=== PATIENT | female | born 1995 | race Caucasian/White ===

== ENCOUNTER 2024-04-29 12:18 | Observation (INO) | payer OTHER, SELFPAY ==
[2024-04-29] VITALS (16 sets, daily range): BP systolic 101–126; BP diastolic 59–98; PULSE 97–137; RESP 9–22; TEMP 36.7–37.1; O2SAT 98–100; BMI 26.5
--- NOTE | ~2024-04-29 | US_ITS ---
EXAMINATION: US pelvic complete DATE: 04/29/2024 16:51 INDICATION: RLQ pain, R/O torsion TECHNIQUE: Multiple transabdominal and endovaginal sonographic images of the pelvis were obtained. COMPARISON: None. FINDINGS: Uterus: 7.5 x 3.6 x 5.3 cm. Endometrial complex measures 4 mm. Right Ovary: 2.9 x 2.4 x 2.9 cm. Vascular flow is present. Left Ovary: 3.2 x 3.0 x 4.6 cm. Vascular flow is present. 2.8 cm circumscribed ovarian lesion with mi nimal somewhat irregular/lacy appearing internal echogenicity, no internal flow (confirmed with sonog rapher, provided image demonstrated artifactual flow), likely resolving hemorrhagic cyst. There is no free fluid in the pelvis. IMPRESSION: Normal pelvic sonogram findings. Reviewed, dictated and finalized at location K. SUPPORT TECHNICIAN
--- NOTE | ~2024-04-29 | XR_ITS ---
EXAMINATION: XR chest 1V portable Exam Date/Time: 04/29/2024 14:40 CREASING MACHINE OPERATOR HISTORY: R sided abdominal pain Comparison: None. RESULT: Lines, tubes, and devices: None. Lungs and pleura: Clear. Cardiomediastinal silhouette: Unremarkable. Other: No acute osseous or upper abdominal finding. IMPRESSION: No acute cardiopulmonary process. Reviewed, dictated and finalized at location K. SING MACHINE OPERATOR
--- NOTE | ~2024-04-29 | CT_ITS ---
EXAMINATION: CT abdomen pelvis w con DATE: 04/29/2024 15:43 INDICATION: RLQ pain TECHNIQUE: Computed tomography (CT) of the abdomen and pelvis was performed with 100 mL Omnipaque-350 intravenous contrast. Automated exposure control and iterative reconstruction technique were employe d. The dose-length product was 251.60 mGy-cm. COMPARISON: None. FINDINGS: Lower thorax: Unremarkable Liver: Normal. Biliary/Gallbladder: Gallbladder is absent. Prominence of the intra and extrahepatic bile ducts, like ly secondary to cholecystectomy. Pancreas: No mass or duct dilation. Spleen: Normal. Adrenals:No mass. Kidneys: No suspicious mass, obstructing stone, or hydronephrosis. Punctate nonobstructing bilateral renal calcifications. GI tract: Mild distal esophageal and gastric wall edema. No small or large bowel dilation. Normal lily endix. Mesentery/Peritoneum: No ascites, mass, or free air. Retroperitoneum: No mass. Pelvis: Normal urinary bladder. Normal uterus. Normal bilateral ovaries. Simple appearing 2.7 cm left ovarian cyst. Soft Tissues: Soft tissues and body wall unremarkable. Bones: No acute osseous finding. IMPRESSION: Mild esophagitis/gastritis. Otherwise, no acute abdominopelvic process detected. Reviewed, dictated and finalized at location K. IC AID ELIGIBILITY ASSISTANT
--- NOTE | ~2024-04-29 | US_ITS ---
EXAMINATION: US abdomen complete DATE: 04/30/2024 12:05 INDICATION: Elevated liver function tests TECHNIQUE: Multiple grayscale and Doppler ultrasound images of the abdomen were obtained. COMPARISON: CT dated 04/29/2024 FINDINGS: The pancreatic head and body are normal in appearance. The pancreatic tail is not visualized. The vi sualized proximal to mid aorta and inferior vena cava are normal. Liver has normal echogenicity and c ontour, with a smooth surface. No liver lesion identified. No intrahepatic biliary duct dilation susp ected. Portal venous flow was seen in the hepatopetal, normal direction and has normal Doppler wavefo rm. Status post cholecystectomy. The common bile duct measures 4 mm in maximal diameter which is norm al. There is normal renal contour and echogenicity bilaterally. The right kidney measures 10.9 x 4.3 x 4.4 cm and the left 11.2 x 4.2 x 3.9 cm. There are no focal renal lesions identified. There is no hydronephrosis. 8 mm anechoic splenic cyst. Spleen is otherwise normal measuring 11.2 cm in maximal length. IMPRESSION: 1. There is post cholecystectomy. Otherwise unremarkable abdominal ultrasound. Reviewed, dictated and finalized at location B. ORATE MEETING PLANNER
--- NOTE | 2024-04-29 14:40 | ECG_ITS ---
Test Date: 2024-04-29 14:50:22 Measurements Intervals [place] Rate: 103 P: 49 CT: 143 QRS: 46 QRSD: 78 T: 28 QT: 294 QTc: 386 Interpretive Statements SINUS TACHYCARDIA CONSIDER RIGHT VENTRICULAR CONDUCTION DELAY BASELINE ARTIFACT- I, II, III, AVR, AVL, AVF, V1-V2 BORDERLINE ECG No previous ECG available for comparison Electronically Signed On 04-29-2024 14:53:11 MEDICATION TECH by Lauri Poe D.O.
[2024-04-29 14:46] LABS: Basophils Percent Auto 0.2 % (0.2-1.2); Eosinophils Percent Auto 0.1 % (0-4.4); Hemoglobin 14.1 g/dL (12.0-15.0); Immature Granulocyte Absolute 0.04 K/mm3 (0.00-0.031); Immature Granulocyte Percent A 0.3 % (0-0.5); Lymphocytes Absolute Auto 0.62 K/mm3 (0.9-3.2); Lymphocytes Percent Auto 4.9 % (18.3-44.2); Mean Corpuscular HGB Conc 33.6 g/dl (32-36); Mean Corpuscular Hemoglobin 27.8 pg (26-34); Mean Corpuscular Volume 82.8 fl (80-100); Mean Platelet Volume 11.7 fl (7.4-10.4); Monocytes Absolute Auto 0.6 K/mm3 (0.1-0.6); Monocytes Percent Auto 4.7 % (2.6-8.5); Neutrophils Absolute Auto 11.3 K/mm3 (1.3-6.7); Neutrophils Percent Auto 89.8 % (45.5-73.1); Platelet Count Result 233 k/mm3 (150-375); Red Blood Count 5.07 M/mm3 (4.2-5.4); White Blood Count 12.6 K/mm3 (4.5-10.0)
[2024-04-29] MEDS: SODIUM CHLORIDE 0.9% IV 2,000 ML 999 ML IV CONT (14:48)
[2024-04-29] MEDS: ONDANSETRON INJ 4 MG/2 ML VIAL IV PUSH ×3 (14:48→22:38)
[2024-04-29] MEDS: HYDROmorphone HCL INJ (*CRX) 1 MG/ML SYR 0.5 MG IV PUSH ×3 (14:49→22:37)
[2024-04-29 14:58] LABS: Glucose Point of Care 100 mg/dl (65-105)
[2024-04-29 15:03] LABS: Add Urine Microscopic? YES; Appearance Urine Clear (Clear); Bacteria Urine Rare /hpf; Bilirubin Urine Negative (Negative); Blood Urine 3+ (Negative); Color Urine Yellow (Yellow); Glucose Urine UA Negative (Negative); Ketones Urine Negative (Negative); Leukocyte Esterase Ur Negative LEU/UL (Negative); Nitrate Urine Negative (Negative); Non Pathogenic Casts 0-2; Protein Urine Negative (Negative); Specific Grav Ur 1.021 (1.001-1.035); Squamous Epithelial Cell Urine Few /hpf (Few); Urobilinogen Urine 0.2 mg/dL (<2.0); WBC Urine 0-5 /hpf (0-3); pH Urine 5.5 (5.0-9.0)
[2024-04-29 15:06] LABS: Alanine Aminotransferase 22 U/L (6-35); Albumin Level 4.7 g/dL (3.5-5.1); Alkaline Phosphatase 66 U/L (38-126); Anion Gap 12 mmol/L (4-12); Aspartate Amino Transferase 29 U/L (14-36); Bilirubin,Total 1.4 mg/dL (0.2-1.3); Blood Urea Nitrogen 12 mg/dL (7-17); Calcium 9.3 mg/dL (8.4-10.2); Carbon Dioxide 21 mmol/L (22-30); Chloride 104 mmol/L (98-107); Estimated CRCL calculation 98 ml/min; Estimated Glomerular Filt Rate > 60; Glucose 100 mg/dL (65-110); Lipase 62 U/L (23-300); Potassium 4.1 mmol/L (3.4-5.0); Sodium 137 mmol/L (137-145)
[2024-04-29] MEDS: KETOROLAC 15 MG/ML VIAL (*BKC) IV PUSH (17:31)
[2024-04-29] MEDS: DICYCLOMINE HCL INJ 20 MG/2 ML VIAL IM (17:31)
--- NOTE | 2024-04-29 18:23 | ED_ITS ---
HPI - General Adult General Chief complaint: Abdominal Pain Stated complaint: abd pain Time Seen by Provider: 04/29/24 14:27 History of Present Illness HPI narrative: This is a 28-year-old female presenting ED with chief abdominal pain. The pain started at 5:00 a.m. this morning. It was initially located around her bellybutton and then migrated to the right lower quadrant. She had a fever of 100.8. She has also had nausea vomiting diarrhea. She took Motrin Tylenol with minimal relief. She notes she has had vaginal bleeding for the last month but has a Nexplanon and is not unusual for to have breakthrough bleeding. She is only sexually active with her and does not have any vaginal discharge or irritation and has no concerns for STDs. Hx of cholecystectomy. Related Data Allergies Allergy/AdvReac Type Severity Reaction Status Date / Time No Known Allergies Allergy Verified 01/11/24 13:48 [facility] Surgical History Surgical History H/O section 2018, 2021 History of cholecystectomy 2017 Family History Family History Father Alcoholism in family member Grandparent Heart disease Social History Social History Smoking status: Never smoker Alcohol intake: never Substance use: never Do You Feel Safe in your Home?: Yes Lack of Transportation: No Lack of Food: Never True Current Housing: I Have Housing Concerned About Future Housing: No Difficulty Paying Gas/Electric Bills: No Difficulty Paying for Meds: No Currently Unemployed: No Education: Bachelor's Degree Difficulty w/ Childcare or Family Care: No Living arrangements: with family Occupation/Education: occupation Additional occupation/education comments: RN, 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 Head: atraumatic. EYES: EOMI, NOSE: Atraumatic NECK: Trachea midline RESPIRATORY: No increased rate of breathing CARDIOVASCULAR: RRR, ABDOMINAL: Tenderness in the right lower quadrant with voluntary guarding, no rebound, no CVA tenderness MUSCULOSKELETAl: No obvious deformities NEURO: Alert. Moving 4/4 extremities SKIN:: Warm, dry. Normal color PSYCHIATRIC: Normal affect Course Vital Signs Vital signs: Vital Signs Temperature 98.7 F 04/29/24 12:21 Pulse Rate 137 H 04/29/24 12:21 Respiratory Rate 20 04/29/24 12:21 Blood Pressure 126/86 04/29/24 12:21 Pulse Oximetry 100 04/29/24 12:21 Temperature 98.7 F 04/29/24 12:21 Pulse Rate 97 04/29/24 18:00 Respiratory Rate 16 04/29/24 18:00 Blood Pressure 106/70 04/29/24 18:00 Pulse Oximetry 99 04/29/24 18:00 Medical Decision Making MDM Narrative Medical decision making narrative: -Course: This is a 28-year-old female presenting with right lower quadrant pain, fevers nausea vomiting diarrhea. CT did not show evidence of appendiciti s. Transvaginal ultrasound did not show evidence of torsion or cyst. WBC 12.6. After fluid resuscitation and pain medication the patient is still exquisitely tender in the right lower quadrant and tachycardic. Her history and physical are concerning for appendicitis despite the negative CT. I am uncomfortable sending the patient home given her continued tenderness and abnormal v/s. Case was discussed with Dr. Montalvo. Patient will be placed on Zosyn and put in observation for repeat abdominal exams and surgical eval. -DDX includes but is not limited to: Appendicitis, colitis, enterocolitis, ovarian cyst, or torsion, viral syndrome -Independent interpretation of studies: White count 12.6 Metabolic panel unremarkable Urine with 3 blood and 6-10 rbc's per high-power field. Patient is having breakthrough bleeding from her Nexplanon. Imaging reviewed -Discussion of Management/Consultants: Michelle Valladares -Interventions: Dilaudid .5 mg x2, , Toradol, 2 L normal saline, Zofran, d icyclomine -Shared decision making / Disposition: Observation Vital Signs Vital Signs: Vital Signs Temperature 98.7 F 04/29/24 12:21 Pulse Rate 137 H 04/29/24 12:21 Respiratory Rate 20 04/29/24 12:21 Blood Pressure 126/86 04/29/24 12:21 Pulse Oximetry 100 04/29/24 12:21 Temperature 98.7 F 04/29/24 12:21 Pulse Rate 97 11/17/24 18:00 Respiratory Rate 16 04/29/24 18:00 Blood Pressure 106/70 04/29/24 18:00 Pulse Oximetry 99 04/29/24 18:00 Lab Data 04/29/24 14:39 04/29/24 14:39 Labs: Lab Results 04/29/24 04/29/24 04/29/24 Range/Units 14:39 14:46 14:51 WBC 12.6 H (4.5-10.0) K/mm3 RBC 5.07 (4.2-5.4) M/mm3 Hgb 14.1 (12.0-15.0) g/dL Hct 42.0 (37.0-47.0) % MCV 82.8 (80-100) fl MCH 27.8 (26-34) pg MCHC 33.6 (32-36) g/dl RDW 13.0 (11.5-14.5) % Plt Count 233 (150-375) k/mm3 MPV 11.7 H (7.4-10.4) fl Immature Gran % (Auto) 0.3 (0-0.5) % Neut % (Auto) 89.8 H (45.5-73.1) % Lymph % (Auto) 4.9 L (18.3-44.2) % [place] % (Auto) 4.7 (2.6-8.5) % Eos % (Auto) 0.1 (0-4.4) % Baso % (Auto) 0.2 (0.2-1.2) % Lymph # (Auto) 0.62 L (0.9-3.2) K/mm3 [place] # (Auto) 0.6 (0.1-0.6) K/mm3 Eos # (Auto) 0.0 (0-0.3) K/mm3 Baso # (Auto) 0.0 (0.0-0.1) K/mm3 Abs Immat Gran (auto) 0.04 H (0.00-0.031) K/mm3 Absolute Neuts (auto) 11.3 H (1.3-6.7) K/mm3 Absolute Nucleated RBC 0.000 (0.0-0.012) K/mm3 Nucleated RBC % 0.0 (0.0-0.2) % Sodium 137 (137-145) mmol/L Potassium 4.1 (3.4-5.0) mmol/L Chloride 104 (98-107) mmol/L Carbon Dioxide 21 L (22-30) mmol/L Anion Gap 12 (4-12) mmol/L BUN 12 (7-17) mg/dL Creatinine 0.60 L (0.7-1.0) mg/dL Estim Creat Clear Calc 98 ml/min Estimated GFR > 60 (59 - ) Glucose 100 (65-110) mg/dL POC Capillary Glucose 100 (65-105) mg/dl Calcium 9.3 (8.4-10.2) mg/dL Total Bilirubin 1.4 H (0.2-1.3) mg/dL AST 29 (14-36) U/L ALT 22 (6-35) U/L Alkaline Phosphatase 66 (38-126) U/L Total Protein 9.0 H (6.3-8.2) g/dL Albumin 4.7 (3.5-5.1) g/dL Lipase 62 (23-300) U/L Urine Color Yellow (Yellow) Urine Appearance Clear (Clear) Urine pH 5.5 (5.0-9.0) Ur Specific [place] 1.021 (1.001-1.035) Urine Protein Negative (Negative) mg/dL Urine Glucose (UA) Negative (Negative) mg/dL Urine Ketones Negative (Negative) mg/dL Ur Blood (Man) 3+ H (Negative) Urine Nitrate Negative (Negative) Urine Bilirubin Negative (Negative) Urine Urobilinogen 0.2 (<2.0) mg/dL Leukocyte Esterase Rfl Negative (Negative) ROGER/UL Urine RBC 6-10 H (0-2) /hpf Urine WBC 0-5 (0-3) /hpf Ur Squamous Epith Cells Few (Few) /hpf Urine Bacteria Rare /hpf Urine Casts 0-2 Discharge Plan Discharge Clinical Impression: Abdominal pain, Fever, Nausea & vomiting, Diarrhea Patient Disposition: Still a Patient Condition: Stable Follow-up/Referrals: Jessica Catherine MD [Primary Care Provider] -
[2024-04-29] MEDS: PIPERACILLN/TAZ 3.375GM/NS50ML 3.375 GM/50 ML BAG IVPB ×2 (18:54→22:37)
[2024-04-29] MEDS: LACTATED RINGERS 1,000 ML 125 ML IV CONT (19:22)
[2024-04-29 19:39] LABS: Influenza A QL RT-PCR Negative (Negative); Influenza B QL RT-PCR Negative (Negative); RSV RNA, RT-PCR Negative (Negative); SARS-CoV-2 RNA PCR Negative (Negative)
--- NOTE | 2024-04-29 21:15 | PM.IMHP ---
H&P: HPI History of Present Illness Date/Time: 04/29/24 21:15 Chief Complaint: Abdominal Pain Narrative: 28 y/o F presents here with abdominal pain with no significant PMH. The patient provides the following history. She presented here from home for further evaluation of abdominal pain. She reports onset at 5:00 a.m. this morning. Initially abdominal pain was primarily periumbilical. Now centralized to her right lower quadrant. She currently describes the abdominal pain as sharp, nonradiating, constant, aggravated by movement/standing, and alleviated by laying down slightly flexed. The pain is accompanied by nausea, vomiting, diarrhea, poor PO intake, and fever. Max T at home was 100.8? F. Trialed Tylenol and Motrin with only minimal relief. She currently has a Nexplanon in place, despite contraceptive she does have breakthrough bleeding which is not unusual for her. Did have vaginal bleeding last month. She is currently sexually active, and monogamous with no concerns for STDs. Denies accompanying dysuria, urinary frequency, vaginal discharge, vaginal irritation, chills, or abdominal distension. She arrived to the emergency department tachycardic in the 130s and afebrile. No previous history of gynecological issues or GI history. History of and cholecystectomy. Bedside test negative. The case was discussed with general surgery who recommended admission for antibiotics given presentation consistent with appendicitis despite lack of findings on CT. Initial VS at presentation: 98.7? F, HR 137, RR 20, 126/86, and 100% on RA. ED workup showed: WBC 12.6, no anemia, no significant electrolyte derangements, creatinine 0.6 and GFR >60, UA showed 3+ blood and 6-10 RBC. Viral PCR negative. CXR showed no acute cardiopulmonary process. CT of the abdomen/pelvis showed mild esophagitis/gastritis otherwise no acute abdominal pelvic process detected. Pelvic ultrasound showed normal pelvic sonogram findings. Review of Systems Review of Systems: All systems reviewed & are unremarkable except as noted in HPI and below [facility] Surgical History Surgical History H/O section 2018, 2021 History of cholecystectomy 2017 Family History Family History Father Alcoholism in family member Grandparent Heart disease Social History Social History Smoking status: Never smoker Alcohol intake: never Substance use: never Do You Feel Safe in your Home?: Yes Lack of Transportation: No Lack of Food: Never True Current Housing: I Have Housing Concerned About Future Housing: No Difficulty Paying Gas/Electric Bills: No Difficulty Paying for Meds: No Currently Unemployed: No Education: Bachelor's Degree Difficulty w/ Childcare or Family Care: No Living arrangements: with family Occupation/Education: occupation Additional occupation/education comments: RN, 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 Gender identity (if verbalized by the patient): Female Sexual Orientation (if Verbalized by the Patient): Straight or Heterosexual Spiritual care concerns: No Agree to blood products: Yes Meds Home Medications and Allergies Home Medications Medication Instructions Recorded Confirmed Type No Home Medications 04/29/24 04/29/24 History Allergies Allergy/AdvReac Type Severity Reaction Status Date / Time No Known Allergies Allergy Verified 04/29/24 20:10 Vital Signs Vital Signs - 24 hr 04/29/24 12:21 04/29/24 14:37 04/29/24 15:16 Temperature 98.7 F Pulse Rate 137 H 106 H 106 H Respiratory Rate 20 22 H 15 Blood Pressure 126/86 126/98 H 112/70 Pulse Oximetry 100 99 100 04/29/24 15:30 04/29/24 17:00 04/29/24 17:30 Temperature Pulse Rate 104 H 102 H 101 H Respiratory Rate 17 13 16 Blood Pressure 115/69 103/70 118/76 Pulse Oximetry 100 100 100 04/29/24 18:00 04/29/24 18:53 04/29/24 18:30 Temperature 98.1 F Pulse Rate 97 117 H Respiratory Rate 16 18 Blood Pressure 106/70 118/77 Pulse Oximetry 99 100 04/29/24 18:45 04/29/24 19:00 04/29/24 19:15 Temperature Pulse Rate 102 H 116 H 112 H Respiratory Rate 9 L 11 L 12 Blood Pressure 111/59 L 115/82 119/72 Pulse Oximetry 99 99 99 04/29/24 19:31 04/29/24 19:46 04/29/24 20:00 Temperature Pulse Rate 102 H 112 H 102 H Respiratory Rate 15 14 15 Blood Pressure 110/62 101/66 106/69 Pulse Oximetry 98 98 98 04/29/24 20:15 Temperature Pulse Rate 104 H Respiratory Rate 12 Blood Pressure 110/73 Pulse Oximetry 99 Exam Const: General: comfortable and no acute distress Other: , female, nontoxic appearance HENMT: Face/Nose/Sinus: Normal nares present Mouth: Yes moist mucous membranes Eyes: General: appearance normal, both eyes and all related structures Sclera: sclerae normal Pupils: Equal, round and reactive pupils present EOM: EOMs intact bilaterally Resp: Effort & Inspection: normal respiratory effort Auscultation: clear to auscultation bilaterally Cardio: Rate: regular rate Rhythm: regular rhythm Other: S1-S2 present without murmur, rub, ectopy GI: Other: Abdomen soft to and nondistended. Exquisitely tender in the right lower quadrant. Skin: General skin exam: normal color and no rashes or lesions noted Wounds: no wounds Neuro: Speech: normal speech Motor exam (neuro): 5/5 motor strength present throughout Sensory Exam: normal sensation Other: A&O x4 Extrem: General: normal to inspection Psych: Mental Status: mental status grossly normal Affect: normal affect Other: Good insight and judgment, pleasant H&P: Results Labs Labs: Short CBC 04/29/24 Range/Units 14:39 WBC 12.6 H (4.5-10.0) K/mm3 Hgb 14.1 (12.0-15.0) g/dL Hct 42.0 (37.0-47.0) % Plt Count 233 (150-375) k/mm3 BMP 04/29/24 14:39 Sodium 137 Potassium 4.1 Chloride 104 Carbon Dioxide 21 L BUN 12 Creatinine 0.60 L Glucose 100 Calcium 9.3 Liver Function 04/29/24 Range/Units 14:39 Total Bilirubin 1.4 H (0.2-1.3) mg/dL AST 29 (14-36) U/L ALT 22 (6-35) U/L Alkaline Phosphatase 66 (38-126) U/L Albumin 4.7 (3.5-5.1) g/dL Urine 04/29/24 Range/Units 14:51 Urine Color Yellow (Yellow) Urine Appearance Clear (Clear) Urine pH 5.5 (5.0-9.0) Ur Specific [place] 1.021 (1.001-1.035) Urine Protein Negative (Negative) mg/dL Urine Glucose (UA) Negative (Negative) mg/dL Assessment and Plan Assessment and plan (1) Abdominal pain: Qualifiers: Abdominal location: right lower quadrant Qualified Code(s): R10.31 - Right lower quadrant pain Code(s): R10.9 - Unspecified abdominal pain Status: Acute Assessment and Plan: - CT abd/pelvis: Mild esophagitis/gastritis. Otherwise, no acute abdominopelvic process detected. - pelvic US: Normal pelvic sonogram findings. - CXR: No acute cardiopulmonary process. - started on Zosyn q.6 - IV fluids: 1L bolus, now on LR at 125 mL/hour - antipyretics, analgesics, and antiemetics p.r.n. - general surgery consulted, Selvin NARANJO. recommended admission for serial abdominal exams and antibiotics. - trend labs, add CRP (2) Fever: Qualifiers: Fever type: unspecified Qualified Code(s): R50.9 - Fever, unspecified Code(s): R50.9 - Fever, unspecified Status: Acute Assessment and Plan: - see above - antipyretics PRN and IV fluids (3) Nausea & vomiting: Qualifiers: Vomiting type: unspecified Qualified Code(s): R11.2 - Nausea with vomiting, unspecified Code(s): R11.2 - Nausea with vomiting, unspecified Status: Acute Assessment and Plan: - see above - antiemetics PRN (4) Diarrhea: Qualifiers: Diarrhea type: unspecified type Qualified Code(s): R19.7 - Diarrhea, unspecified Code(s): R19.7 - Diarrhea, unspecified Status: Acute Assessment and Plan: - CT unrevealing - c/f appendicitis despite lack of findings on CT - started on Zosyn - consider stool culture if the diarrhea is persistent despite antibiotics Plan Diet: NPO GI Prophylaxis: Pantoprazole DVT Prophylaxis: Low risk Lines: Peripheral Code Status: Full code Quality If No VTE Prophylaxis Answer both mechanical and pharmacologic: Reason no mechanical VTE proph: low risk/not indicated Reason no pharmacologic proph: low risk/not indicated Hospitalist MIPS Advance Care Plan I have confirmed that the patient's Advanced Care Plan is present, code status is documented, or surrogate decision maker is listed in patient medical record.: Yes Medication Reconciliation I have utilized all available resources to obtain, update and review the patients current medications (includes all prescriptions, OTC, herbals, cannabis, and nutritional supplements).: Yes
--- NOTE | 2024-04-29 22:20 | PM.CNGS ---
Assessment and Plan Assessment and plan (1) Right lower quadrant abdominal pain: Code(s): R10.31 - Right lower quadrant pain Status: Acute Assessment and Plan: Recommend patient be admitted and started on IV antibiotics for GI infection. Clinically this is very suspicious for appendicitis but on CT scan appendicitis is not seen. Another etiology for her right lower quadrant abdominal pain is not evident. She will be admitted, kept NPO except for ice chips, follow serial labs exam and if necessary repeat CT scan. If pain does not resolve, will need diagnostic laparoscopy possible laparoscopic appendectomy. I explained this to the patient and she is agreeable to this plan. 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 She woke up this morning with pain in the middle of her abdomen that moved to the right lower quadrant. The pain was severe. She gave it some time to go away but when it did and she came to the emergency room. She experienced nausea as well as diarrhea. She is having her menstrual period now. In the emergency room she was noted to have tachycardia but was afebrile. She had tenderness in the right lower quadrant with guarding. Her white blood cell count was [address]. She had a CT scan which showed a normal appendix. There was a small left ovarian cyst which is not uncommon for her. She had a pelvic ultrasound which showed no evidence of fluid in the abdomen or other reason for her to have right lower quadrant pain. She is admitted now for persistent right lower quadrant abdominal pain. I examined her and evaluated her in the emergency room. I also looked at her CT scan myself. She is seen now in consultation. Review of Systems Review of Systems: All systems reviewed & are unremarkable except as noted in HPI and below (Per HPI) [facility] Surgical History Surgical History H/O section 2021 History of cholecystectomy 2018 Family History Family History Father Alcoholism in family member Grandparent Heart disease Social History Social History Smoking status: Never smoker Alcohol intake: never Substance use: never Do You Feel Safe in your Home?: Yes Lack of Transportation: No Lack of Food: Never True Current Housing: I Have Housing Concerned About Future Housing: No Difficulty Paying Gas/Electric Bills: No Difficulty Paying for Meds: No Currently Unemployed: No Education: Bachelor's Degree Difficulty w/ Childcare or Family Care: No Living arrangements: with family Occupation/Education: occupation Additional occupation/education comments: RN, 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 Gender identity (if verbalized by the patient): Female Sexual Orientation (if Verbalized by the Patient): Straight or Heterosexual Spiritual care concerns: No Agree to blood products: Yes Meds Home Medications and Allergies Home Medications Medication Instructions Recorded Confirmed Type No Home Medications 04/29/24 04/29/24 History Allergies Allergy/AdvReac Type Severity Reaction Status Date / Time No Known Allergies Allergy Verified 04/29/24 20:10 Vital Signs Vital Signs - 24 hr 04/29/24 12:21 04/29/24 14:37 04/29/24 15:16 Temperature 37.1 C Pulse Rate 137 H 106 H 106 H Respiratory Rate 20 22 H 15 Blood Pressure 126/86 126/98 H 112/70 Pulse Oximetry 100 99 100 04/29/24 15:30 04/29/24 17:00 04/29/24 17:30 Temperature Pulse Rate 104 H 102 H 101 H Respiratory Rate 17 13 16 Blood Pressure 115/69 103/70 118/76 Pulse Oximetry 100 100 100 04/29/24 18:00 04/29/24 18:53 04/29/24 18:30 Temperature 36.7 C Pulse Rate 97 117 H Respiratory Rate 16 18 Blood Pressure 106/70 118/77 Pulse Oximetry 99 100 04/29/24 18:45 04/29/24 19:00 04/29/24 19:15 Temperature Pulse Rate 102 H 116 H 112 H Respiratory Rate 9 L 11 L 12 Blood Pressure 111/59 L 115/82 119/72 Pulse Oximetry 99 99 99 04/29/24 19:31 04/29/24 19:46 04/29/24 20:00 Temperature Pulse Rate 102 H 112 H 102 H Respiratory Rate 15 14 15 Blood Pressure 110/62 101/66 106/69 Pulse Oximetry 98 98 98 04/29/24 20:15 Temperature Pulse Rate 104 H Respiratory Rate 12 Blood Pressure 110/73 Pulse Oximetry 99 Exam Const: General: cooperative, alert, awake, ill appearing, well nourished and thin; No comfortable Orientation/consciousness: patient oriented x3 HENMT: Head: normocephalic and atraumatic Mouth: Yes Normal oral and palatal mucosa present Eyes: Conjunctivae: conjunctivae normal Pupils: Equal, round and reactive pupils present EOM: EOMs intact bilaterally Neck: Neck: normal visual inspection, no lymphadenopathy and nontender Resp: Effort & Inspection: normal respiratory effort Auscultation: clear to auscultation bilaterally Cardio: Rate: regular rate Rhythm: regular rhythm Heart sounds: no gallops, no murmurs and no rubs GI: Inspection: normal to inspection, non-distended and scaphoid GI Palp: Yes Soft to palpation, Yes Tenderness to palpation present (GI) (Exquisitely tender right lower quadrant with guarding, no referred tenderne), No Hepatomegaly present, No Splenomegaly present, No Hernia present and No Palpable mass present Auscultation: Hypoactive bowel sounds present Skin: Lesions: no lesions Rashes: no rashes Neuro: General: no focal motor deficits and CN's II-XI intact bilaterally Cranial nerves: Yes Equal, round and reactive pupils present, Yes Bilaterally intact EOM present, Yes facial symmetry and Yes Midline tongue present Speech: normal speech Motor exam (neuro): 5/5 motor strength present throughout and Motor abnormalities not present Extrem: General: no clubbing, cyanosis or edema and edema Psych: Affect: normal affect Thought process: Normal thought process present Insight: Good insight present (Psych) Results Labs 04/29/24 14:39 04/29/24 14:39 Labs: Abnormal lab results 04/29/24 04/29/24 Range/Units 14:39 14:51 WBC 12.6 H (4.5-10.0) K/mm3 MPV 11.7 H (7.4-10.4) fl Neut % (Auto) 89.8 H (45.5-73.1) % Lymph % (Auto) 4.9 L (18.3-44.2) % Lymph # (Auto) 0.62 L (0.9-3.2) K/mm3 Abs Immat Gran (auto) 0.04 H (0.00-0.031) K/mm3 Absolute Neuts (auto) 11.3 H (1.3-6.7) K/mm3 Carbon Dioxide 21 L (22-30) mmol/L Creatinine 0.60 L (0.7-1.0) mg/dL Total Bilirubin 1.4 H (0.2-1.3) mg/dL Total Protein 9.0 H (6.3-8.2) g/dL Ur Blood (Man) 3+ H (Negative) Urine RBC 6-10 H (0-2) /hpf Diabetes panel 04/29/24 Range/Units 14:39 Sodium 137 (137-145) mmol/L Potassium 4.1 (3.4-5.0) mmol/L Chloride 104 (98-107) mmol/L Carbon Dioxide 21 L (22-30) mmol/L BUN 12 (7-17) mg/dL Creatinine 0.60 L (0.7-1.0) mg/dL Glucose 100 (65-110) mg/dL Calcium 9.3 (8.4-10.2) mg/dL AST 29 (14-36) U/L ALT 22 (6-35) U/L Alkaline Phosphatase 66 (38-126) U/L Total Protein 9.0 H (6.3-8.2) g/dL Albumin 4.7 (3.5-5.1) g/dL Calcium panel 04/29/24 Range/Units 14:39 Calcium 9.3 (8.4-10.2) mg/dL Albumin 4.7 (3.5-5.1) g/dL Pituitary panel 04/29/24 Range/Units 14:39 Sodium 137 (137-145) mmol/L Potassium 4.1 (3.4-5.0) mmol/L Chloride 104 (98-107) mmol/L Carbon Dioxide 21 L (22-30) mmol/L BUN 12 (7-17) mg/dL Creatinine 0.60 L (0.7-1.0) mg/dL Glucose 100 (65-110) mg/dL Calcium 9.3 (8.4-10.2) mg/dL Adrenal panel 04/29/24 Range/Units 14:39 Sodium 137 (137-145) mmol/L Potassium 4.1 (3.4-5.0) mmol/L Chloride 104 (98-107) mmol/L Carbon Dioxide 21 L (22-30) mmol/L BUN 12 (7-17) mg/dL Creatinine 0.60 L (0.7-1.0) mg/dL Glucose 100 (65-110) mg/dL Calcium 9.3 (8.4-10.2) mg/dL Total Bilirubin 1.4 H (0.2-1.3) mg/dL AST 29 (14-36) U/L ALT 22 (6-35) U/L Alkaline Phosphatase 66 (38-126) U/L Total Protein 9.0 H (6.3-8.2) g/dL Albumin 4.7 (3.5-5.1) g/dL All other labs normal. Imaging Abdomen CT scan report/results: report reviewed and image reviewed (I could not definitely find the appendix suggestive of a diminutive appendix) CT scan - pelvis: report reviewed and image reviewed
[2024-04-29] MEDS: oxyCODONE HCL (*CRX) 2.5 MG TAB IR PO (22:38)
[2024-04-30] VITALS (14 sets, daily range): BP systolic 95–115; BP diastolic 52–78; PULSE 78–105; RESP 14–20; TEMP 36.1–36.4; O2SAT 95–100
[2024-04-30] MEDS: PROMETHAZINE HCL 25 MG/ML AMPUL IM ×3 (00:53→19:42)
[2024-04-30] MEDS: HYDROmorphone HCL INJ (*CRX) 1 MG/ML SYR 0.5 MG IV PUSH ×3 (01:25→18:50)
[2024-04-30] MEDS: IBUPROFEN IV 800 MG/200 ML 800 MG/200 ML BAG 400 MG IVPB ×3 (03:15→15:11)
[2024-04-30] MEDS: MORPHINE SULFATE PCA (*CRX) 30 MG/30 ML SYR IV CONT ×2 (03:19→12:08)
[2024-04-30] MEDS: LACTATED RINGERS 1,000 ML 125 ML IV CONT ×2 (03:36→15:12)
[2024-04-30] MEDS: PIPERACILLN/TAZ 3.375GM/NS50ML 3.375 GM/50 ML BAG IVPB ×4 (05:58→23:01)
[2024-04-30 06:42] LABS: Basophils Percent Auto 0.3 % (0.2-1.2); Eosinophils Percent Auto 0.1 % (0-4.4); Hematocrit 35.1 % (37.0-47.0); Hemoglobin 11.5 g/dL (12.0-15.0); Immature Granulocyte Absolute 0.02 K/mm3 (0.00-0.031); Immature Granulocyte Percent A 0.3 % (0-0.5); Lymphocytes Absolute Auto 0.87 K/mm3 (0.9-3.2); Lymphocytes Percent Auto 12.4 % (18.3-44.2); Mean Corpuscular HGB Conc 32.8 g/dl (32-36); Mean Corpuscular Hemoglobin 27.7 pg (26-34); Mean Corpuscular Volume 84.6 fl (80-100); Mean Platelet Volume 12.8 fl (7.4-10.4); Monocytes Absolute Auto 0.4 K/mm3 (0.1-0.6); Monocytes Percent Auto 6.3 % (2.6-8.5); Neutrophils Absolute Auto 5.7 K/mm3 (1.3-6.7); Neutrophils Percent Auto 80.6 % (45.5-73.1); Platelet Count Result 174 k/mm3 (150-375); Red Blood Count 4.15 M/mm3 (4.2-5.4); Red Cell Distribution Width 13.2 % (11.5-14.5)
[2024-04-30 07:13] LABS: Alanine Aminotransferase 273 U/L (6-35); Albumin Level 3.6 g/dL (3.5-5.1); Alkaline Phosphatase 78 U/L (38-126); Anion Gap 9 mmol/L (4-12); Aspartate Amino Transferase 322 U/L (14-36); Bilirubin,Total 2.1 mg/dL (0.2-1.3); Blood Urea Nitrogen 6 mg/dL (7-17); CRP 3.4 mg/dL (<1.0); Calcium 8.3 mg/dL (8.4-10.2); Carbon Dioxide 20 mmol/L (22-30); Chloride 108 mmol/L (98-107); Estimated CRCL calculation 106 ml/min; Estimated Glomerular Filt Rate > 60; Glucose 98 mg/dL (65-110); Potassium 4.1 mmol/L (3.4-5.0); Sodium 137 mmol/L (137-145)
[2024-04-30 10:05] LABS: BEDSIDEPREGUCG Negative (Negative)
--- NOTE | 2024-04-30 10:52 | PM.IMPN ---
Progress Note: A&P Assessment and Plan (1) Right lower quadrant abdominal pain: Code(s): R10.31 - Right lower quadrant pain Status: Acute Assessment and Plan: - Unclear etiology. Abdomen/Pelvis CT 04/29/24 15:45 IMPRESSION: Mild esophagitis/gastritis. - Pelvic ultrasound normal. - CXR negative. - Possibly appendicitis vs cholangitis vs other. - General surgery consulted. - Maintain NPO with IVF hydration. - Supportive care with pain and nausea meds. (2) Abdominal pain: Qualifiers: Abdominal location: right lower quadrant Qualified Code(s): R10.31 - Right lower quadrant pain Code(s): R10.9 - Unspecified abdominal pain Status: Acute Assessment and Plan: - Mgt as # 1. (3) Elevated LFTs: Code(s): R79.89 - Other specified abnormal findings of blood chemistry Status: Acute Assessment and Plan: - Unclear etiology. - CT abdomen only showing mild gastritis/esophagitis. - US pelvis normal. - US abdomen ordered. - Monitor trend. - Further w/u pending US abdomen findings and trend. (4) Fever: Qualifiers: Fever type: unspecified Qualified Code(s): R50.9 - Fever, unspecified Code(s): R50.9 - Fever, unspecified Status: Acute Assessment and Plan: - Unclear etiology. - Possibly infectious vs other. - No episodes inpatient. - Supportive care. (5) Nausea & vomiting: Qualifiers: Vomiting type: unspecified Qualified Code(s): R11.2 - Nausea with vomiting, unspecified Code(s): R11.2 - Nausea with vomiting, unspecified Status: Acute Assessment and Plan: - Unclear etiology. - CT abdomen showing mild esophagitis/gastritis. - Appears controlled inpatient. - Continue supportive care. (6) Diarrhea: Qualifiers: Diarrhea type: unspecified type Qualified Code(s): R19.7 - Diarrhea, unspecified Code(s): R19.7 - Diarrhea, unspecified Status: Acute Assessment and Plan: - Unclear etiology. - CT abd/pelvis non-revealing. - No episodes inpatient. - Consider stool studies with repeat episodes. Plan General surgery following and we'll maintain NPO for now with supportive care and IVF hydration. Continue w/u for symptoms etiology. Time Spent With Patient Time with patient: 25 - 35 minutes Subjective Date/time seen: 04/30/24 10:52 Patient states she still has some abdominal pain mainly to her right mid to lower abdomen. States pain currently tolerable, /10. Denies any nausea or vomiting. Interval history: Patient calm on bedrest and looks to be in no acute distress. Review of Systems Review of Systems: All systems reviewed & are unremarkable except as noted in HPI and below Exam Narrative: HEENT: Atraumatic, PERRL, EOM, anicteric, moist mucosa. NECK: Supple. Lungs: Clear bilaterally. Garner: RRR, no murmurs. Abdomen: Soft, tender to right mid and lower regions, +ve bowel soundsX4 quadrants. Extremities: No cyanosis, 2+ pedal and radial pulses, no edema. Skin: Warm and dry with no lesions. Neuro: Well oriented. No focal neuro deficits noted. Psych: Pleasant and co-operative. Objective Data Vital Signs Vital Signs: Vital Signs - 24 hr 04/29/24 12:21 04/29/24 14:37 04/29/24 15:16 Temperature 98.7 F Pulse Rate 137 H 106 H 106 H Respiratory Rate 20 22 H 15 Blood Pressure 126/86 126/98 H 112/70 Pulse Oximetry 100 99 100 Oxygen Delivery 04/29/24 15:30 04/29/24 17:00 04/29/24 17:30 Temperature Pulse Rate 104 H 102 H 101 H Respiratory Rate 17 13 16 Blood Pressure 115/69 103/70 118/76 Pulse Oximetry 100 100 100 Oxygen Delivery 04/29/24 18:00 04/29/24 18:53 04/29/24 18:30 Temperature 98.1 F Pulse Rate 97 117 H Respiratory Rate 16 18 Blood Pressure 106/70 118/77 Pulse Oximetry 99 100 Oxygen Delivery 04/29/24 18:45 04/29/24 19:00 04/29/24 19:15 Temperature Pulse Rate 102 H 116 H 112 H Respiratory Rate 9 L 11 L 12 Blood Pressure 111/59 L 115/82 119/72 Pulse Oximetry 99 99 99 Oxygen Delivery 04/29/24 19:31 04/29/24 19:46 04/29/24 20:00 Temperature Pulse Rate 102 H 112 H 102 H Respiratory Rate 15 14 15 Blood Pressure 110/62 101/66 106/69 Pulse Oximetry 98 98 98 Oxygen Delivery 04/29/24 20:15 04/29/24 23:15 04/30/24 03:19 Temperature Pulse Rate 104 H Respiratory Rate 12 18 Blood Pressure 110/73 Pulse Oximetry 99 99 Oxygen Delivery Room Air 04/30/24 06:00 Temperature 97.4 F L Pulse Rate 105 H Respiratory Rate 20 Blood Pressure 111/64 Pulse Oximetry 98 Oxygen Delivery Intake/Output Intake/Output: Intake & Output 04/27/24 04/28/24 04/29/24 04/30/24 23:59 23:59 23:59 23:59 Intake Total 2100 1200 Output Total 1400 Balance 2100 -200 Meds/Results Medications: Active Medications Generic Name Dose Route Start Last Admin Trade Name Freq PRN Reason Stop Dose Admin Acetaminophen 1,000 mg 04/29/24 21:26 Acetaminophen 500 Mg Tablet PO Q6H PRN Mild Pain (1-3) or Fever Piperacillin/Tazobactam/Dextrose 3.375 gm in 50 mls @ 100 mls/hr 04/30/24 00:00 04/30/24 05:58 Zosyn 3.375 Gm/Ns 50 Ml IVPB 100 mls/hr Q6H FACUNDO Administration Lactated Ringer's 1,000 mls @ 125 mls/hr 04/29/24 18:45 04/30/24 03:36 Lr - Lactated Ringers Iv IV CONT 125 mls/hr .Q8H FACUNDO Administration Ibuprofen 800 mg in 200 mls @ 400 mls/hr 04/30/24 03:00 04/30/24 10:24 Caldolor 800 Mg/200 Ml IVPB 400 mls/hr Q6H FACUNDO Administration Morphine Sulfate 30 mg in 30 mls @ 2 mls/hr 04/30/24 03:00 04/30/24 03:19 Morphine Sulfate Automation Engineering Technician IV CONT 2 mg/hr PRN PRN 2 mls/hr WEB PRODUCTION MANAGER Management Administration Protocol 2 MG/HR Ondansetron HCl 4 mg 04/29/24 22:09 04/29/24 22:38 Ondansetron Inj 4 Mg/2 Ml Vial IV PUSH 4 mg Q6H PRN Administration Nausea And Vomiting Promethazine HCl 25 mg 04/30/24 00:44 04/30/24 07:50 Promethazine Hcl 25 Mg/Ml Ampul IM 25 mg Q4H PRN Administration Intractable nausea vomiting Radiology Results: ITS Impressions Chest X-Ray 04/29/24 14:53 IMPRESSION: No acute cardiopulmonary process. Abdomen/Pelvis CT 04/29/24 15:45 IMPRESSION: Mild esophagitis/gastritis. Otherwise, no acute abdominopelvic process detected. Pelvis Ultrasound 04/29/24 16:52 IMPRESSION: Normal pelvic sonogram findings. Labs Labs: Laboratory Results - last 24 hr 04/29/24 04/29/24 04/29/24 14:39 14:46 14:51 WBC 12.6 H RBC 5.07 Hgb 14.1 Hct 42.0 MCV 82.8 MCH 27.8 MCHC 33.6 RDW 13.0 Plt Count 233 MPV 11.7 H Immature Gran % (Auto) 0.3 Neut % (Auto) 89.8 H Lymph % (Auto) 4.9 L [place] % (Auto) 4.7 Eos % (Auto) 0.1 Baso % (Auto) 0.2 Lymph # (Auto) 0.62 L [place] # (Auto) 0.6 Eos # (Auto) 0.0 Baso # (Auto) 0.0 Abs Immat Gran (auto) 0.04 H Absolute Neuts (auto) 11.3 H Absolute Nucleated RBC 0.000 Nucleated RBC % 0.0 Sodium 137 Potassium 4.1 Chloride 104 Carbon Dioxide 21 L Anion Gap 12 BUN 12 Creatinine 0.60 L Estim Creat Clear Calc 98 Estimated GFR > 60 Glucose 100 POC Capillary Glucose 100 Calcium 9.3 Total Bilirubin 1.4 H AST 29 ALT 22 Alkaline Phosphatase 66 C-Reactive Protein Total Protein 9.0 H Albumin 4.7 Lipase 62 Urine Color Yellow Urine Appearance Clear Urine pH 5.5 Ur Specific [place] 1.021 Urine Protein Negative Urine Glucose (UA) Negative Urine Ketones Negative Ur Blood (Man) 3+ H Urine Nitrate Negative Urine Bilirubin Negative Urine Urobilinogen 0.2 Leukocyte Esterase Rfl Negative Urine RBC 6-10 H Urine WBC 0-5 Ur Squamous Epith Cells Few Urine Bacteria Rare Urine Casts 0-2 POC Urine HCG, Qual Influenza A (RT-PCR) Influenza B (RT-PCR) RSV (RT-PCR) SARS-CoV-2 RNA (RT-PCR) 04/29/24 04/29/24 04/30/24 14:54 18:57 05:45 WBC 7.0 RBC 4.15 L Hgb 11.5 L Hct 35.1 L MCV 84.6 MCH 27.7 MCHC 32.8 RDW 13.2 Plt Count 174 MPV 12.8 H Immature Gran % (Auto) 0.3 Neut % (Auto) 80.6 H Lymph % (Auto) 12.4 L [place] % (Auto) 6.3 Eos % (Auto) 0.1 Baso % (Auto) 0.3 Lymph # (Auto) 0.87 L [place] # (Auto) 0.4 Eos # (Auto) 0.0 Baso # (Auto) 0.0 Abs Immat Gran (auto) 0.02 Absolute Neuts (auto) 5.7 Absolute Nucleated RBC 0.000 Nucleated RBC % 0.0 Sodium 137 Potassium 4.1 Chloride 108 H Carbon Dioxide 20 L Anion Gap 9 BUN 6 L D Creatinine 0.60 L Estim Creat Clear Calc 106 Estimated GFR > 60 Glucose 98 POC Capillary Glucose Calcium 8.3 L Total Bilirubin 2.1 H AST 322 H ALT 273 H Alkaline Phosphatase 78 C-Reactive Protein 3.4 H Total Protein 7.0 Albumin 3.6 Lipase Urine Color Urine Appearance Urine pH Ur Specific [place] Urine Protein Urine Glucose (UA) Urine Ketones Ur Blood (Man) Urine Nitrate Urine Bilirubin Urine Urobilinogen Leukocyte Esterase Rfl Urine RBC Urine WBC Ur Squamous Epith Cells Urine Bacteria Urine Casts POC Urine HCG, Qual Negative Influenza A (RT-PCR) Negative Influenza B (RT-PCR) Negative RSV (RT-PCR) Negative SARS-CoV-2 RNA (RT-PCR) Negative Quality VTE Prophylaxis VTE prophylaxis: mechanical ordered Hospitalist MIPS Advance Care Plan I have confirmed that the patient's Advanced Care Plan is present, code status is documented, or surrogate decision maker is listed in patient medical record.: Yes Medication Reconciliation I have utilized all available resources to obtain, update and review the patients current medications (includes all prescriptions, OTC, herbals, cannabis, and nutritional supplements).: Yes
--- NOTE | 2024-04-30 15:28 | P.PNGS_ITS ---
Progress Note: A&P Assessment and Plan (1) Right lower quadrant abdominal pain: Code(s): R10.31 - Right lower quadrant pain Status: Acute Assessment and Plan: Although her initial CT showed no findings for appendicitis, her presentation is very suspicious for appendicitis. She continues to have abdominal pain today, and she actually feels like it has progressed overnight. She was transitioned to a morphine FAMILY AND CONSUMER SCIENCES TEACHER pump for pain control. Abdominal ultrasound ordered today and was negative for any other acute findings. I discussed the case with Dr. Montalvo and also discussed treatment options in detail with the patient. We discussed the option of proceeding with a diagnostic laparoscopy, possible appendectomy today versus conservative managemet with IV antibiotics and repeating a CT scan of the abdomen and pelvis. We discussed the details of the procedure, risks, benefits, alternatives, and expected recovery. She agrees with proceeding with surgery. Will keep her NPO with IV fluids, and proceed with surgery by Dr. Montalvo later today. Continue IV Zosyn. (2) Nausea & vomiting: Qualifiers: Vomiting type: unspecified Qualified Code(s): R11.2 - Nausea with vomiting, unspecified Code(s): R11.2 - Nausea with vomiting, unspecified Status: Acute (3) Diarrhea: Qualifiers: Diarrhea type: unspecified type Qualified Code(s): R19.7 - Diarrhea, unspecified Code(s): R19.7 - Diarrhea, unspecified Status: Acute Plan I have discussed the patient's case and plan of care with Dr. Montalvo. Subjective Subjective Date/Time Seen: 04/30/24 15:28 Interval history: Chart reviewed. Patient's RLQ abdominal pain has gotten worse overnight. She reports having increased pain through the evening and into this morning. She was changed to a FAMILY AND CONSUMER SCIENCES TEACHER pump overnight for better pain control. Her pain is aggravated by any movement and getting up to walk. She denies any nausea or vomiting. No fevers. WBC count normal this morning. LFTs went up slightly today and Hospitalist ordered an abdominal ultrasound that was unremarkable. Exam Const: General: no acute distress and uncomfortable (d/t abdominal pain) Orientation/consciousness: patient oriented x3 GI: Inspection: non-distended GI Palp: Yes Soft to palpation, Yes Tender ness to palpation present (GI) (focal tenderness in the RLQ at McBurney's point), Yes Guarding due to palpation present (GI) and No Rebound tenderness present Auscultation: normal bowel sounds Objective Data Vital Signs Vital Signs: Vital Signs - 24 hr 04/29/24 15:30 04/29/24 17:00 04/29/24 17:30 Temperature Pulse Rate 104 H 102 H 101 H Respiratory Rate 17 13 16 Blood Pressure 115/69 103/70 118/76 Pulse Oximetry 100 100 100 Oxygen Delivery 04/29/24 18:00 04/29/24 18:53 04/29/24 18:30 Temperature 98.1 F Pulse Rate 97 117 H Respiratory Rate 16 18 Blood Pressure 106/70 118/77 Pulse Oximetry 99 100 Oxygen Delivery 04/29/24 18:45 04/29/24 19:00 04/29/24 19:15 Temperature Pulse Rate 102 H 116 H 112 H Respiratory Rate 9 L 11 L 12 Blood Pressure 111/59 L 115/82 119/72 Pulse Oximetry 99 99 99 Oxygen Delivery 04/29/24 19:31 04/29/24 19:46 04/29/24 20:00 Temperature Pulse Rate 102 H 112 H 102 H Respiratory Rate 15 14 15 Blood Pressure 110/62 101/66 106/69 Pulse Oximetry 98 98 98 Oxygen Delivery 04/29/24 20:15 04/29/24 23:15 04/30/24 03:19 Temperature Pulse Rate 104 H Respiratory Rate 12 18 Blood Pressure 110/73 Pulse Oximetry 99 99 Oxygen Delivery Room Air 04/30/24 06:00 04/30/24 12:08 04/30/24 12:08 Temperature 97.4 F L Pulse Rate 105 H Respiratory Rate 20 18 18 Blood Pressure 111/64 Pulse Oximetry 98 100 99 Oxygen Delivery 04/30/24 08:00 04/30/24 14:00 Temperature 97.4 F L Pulse Rate 85 Respiratory Rate 18 Blood Pressure 103/66 Pulse Oximetry 99 95 Oxygen Delivery Room Air Intake/Output Intake/Output: Intake & Output 04/27/24 04/28/24 04/29/24 04/30/24 23:59 23:59 23:59 23:59 Intake Total 2100 2480 Output Total 1400 Balance 2100 1080 Meds/Results Medications: Active Medications Generic Name Dose Route Start Last Admin Trade Name Freq PRN Reason Stop Dose Admin Acetaminophen 1,000 mg 04/29/24 21:26 Acetaminophen 500 Mg Tablet PO Q6H PRN Mild Pain (1-3) or Fever Piperacillin/Tazobactam/Dextrose 3.375 gm in 50 mls @ 100 mls/hr 04/30/24 00:00 04/30/24 13:03 Zosyn 3.375 Gm/Ns 50 Ml IVPB 100 mls/hr Q6H FACUNDO Administration Lactated Ringer's 1,000 mls @ 125 mls/hr 04/29/24 18:45 04/30/24 15:12 Lr - Lactated Ringers Iv IV CONT 125 mls/hr .Q8H FACUNDO Administration Ibuprofen 800 mg in 200 mls @ 400 mls/hr 04/30/24 03:00 04/30/24 15:11 Caldolor 800 Mg/200 Ml IVPB 400 mls/hr Q6H FACUNDO Administration Morphine Sulfate 30 mg in 30 mls @ 2 mls/hr 04/30/24 03:00 04/30/24 12:08 Morphine Sulfate Revenue Inspector IV CONT 2 mg/hr PRN PRN 2 mls/hr FAMILY AND CONSUMER SCIENCES TEACHER Management Administration Protocol 2 MG/HR Ondansetron HCl 4 mg 04/29/24 22:09 04/29/24 22:38 Ondansetron Inj 4 Mg/2 Ml Vial IV PUSH 4 mg Q6H PRN Administration Nausea And Vomiting Promethazine HCl 25 mg 04/30/24 00:44 04/30/24 07:50 Promethazine Hcl 25 Mg/Ml Ampul IM 25 mg Q4H PRN Administration Intractable nausea vomiting Radiology Results: ITS Impressions Chest X-Ray 04/29/24 14:53 IMPRESSION: No acute cardiopulmonary process. Abdomen/Pelvis CT 04/29/24 15:45 IMPRESSION: Mild esophagitis/gastritis. Otherwise, no acute abdominopelvic process detected. Pelvis Ultrasound 04/29/24 16:52 IMPRESSION: Normal pelvic sonogram findings. Abdomen Ultrasound 04/30/24 12:27 IMPRESSION: 1. There is post cholecystectomy. Otherwise unremarkable abdominal ultrasound. Labs Labs: Laboratory Results - last 24 hr 04/29/24 04/29/24 04/30/24 14:54 18:57 05:45 WBC 7.0 RBC 4.15 L Hgb 11.5 L Hct 35.1 L MCV 84.6 MCH 27.7 MCHC 32.8 RDW 13.2 Plt Count 174 MPV 12.8 H Immature Gran % (Auto) 0.3 Neut % (Auto) 80.6 H Lymph % (Auto) 12.4 L [place] % (Auto) 6.3 Eos % (Auto) 0.1 Baso % (Auto) 0.3 Lymph # (Auto) 0.87 L [place] # (Auto) 0.4 Eos # (Auto) 0.0 Baso # (Auto) 0.0 Abs Immat Gran (auto) 0.02 Absolute Neuts (auto) 5.7 Absolute Nucleated RBC 0.000 Nucleated RBC % 0.0 Sodium 137 Potassium 4.1 Chloride 108 H Carbon Dioxide 20 L Anion Gap 9 BUN 6 L D Creatinine 0.60 L Estim Creat Clear Calc 106 Estimated GFR > 60 Glucose 98 Calcium 8.3 L Total Bilirubin 2.1 H AST 322 H ALT 273 H Alkaline Phosphatase 78 C-Reactive Protein 3.4 H Total Protein 7.0 Albumin 3.6 POC Urine HCG, Qual Negative Influenza A (RT-PCR) Negative Influenza B (RT-PCR) Negative RSV (RT-PCR) Negative SARS-CoV-2 RNA (RT-PCR) Negative
--- NOTE | 2024-04-30 16:24 | WPDHPUPDATE1 ---
History and Physical Update Update Date/Time: 04/30/24 16:24 History and Physical has been reviewed, including an updated exam of the patient. There are NO changes in the patient's condition. Risks, benefits, and alternatives have been discussed and questions answered. Patient agrees to proceed with procedure.
--- NOTE | 2024-04-30 16:43 | WPDANESEPPF ---
Anes - Initial Pre Proc Eval Procedure: Operation Date: 04/30/24 16:15 Proposed Procedures p Diagnostic Laparoscopy with Appendectomy - Deniz Montalvo MD Date/Time: 04/30/24 16:43 Surgeon: Harley Jimenez MD Pre Op Diagnosis: RLQ abd pain Patient Data Age: 28 Gender: F Height: 1.57 m Weight: 65.8 kg Last Vital Signs Temp 36.1 C L 04/30/24 16:00 Pulse 93 04/30/24 16:00 Resp 14 04/30/24 16:00 BP 110/66 04/30/24 16:00 Pulse Ox 97 04/30/24 16:00 O2 Del Method Room Air 04/30/24 16:00 Allergies Allergy/AdvReac Type Severity Reaction Status Date / Time No Known Allergies Allergy Verified 04/29/24 20:10 Home Medications Medication Instructions Recorded Confirmed Type No Home Medications 04/29/24 04/29/24 History Laboratory Tests 04/29/24 04/29/24 04/30/24 14:54 18:57 05:45 WBC 7.0 K/mm3 (4.5-10.0) RBC 4.15 L M/mm3 (4.2-5.4) Hgb 11.5 L g/dL (12.0-15.0) Hct 35.1 L % (37.0-47.0) MCV 84.6 fl (80-100) MCH 27.7 pg (26-34) MCHC 32.8 g/dl (32-36) RDW 13.2 % (11.5-14.5) Plt Count 174 k/mm3 (150-375) MPV 12.8 H fl (7.4-10.4) Immature Gran % (Auto) 0.3 % (0-0.5) Neut % (Auto) 80.6 H % (45.5-73.1) Lymph % (Auto) 12.4 L % (18.3-44.2) [place] % (Auto) 6.3 % (2.6-8.5) Eos % (Auto) 0.1 % (0-4.4) Baso % (Auto) 0.3 % (0.2-1.2) Lymph # (Auto) 0.87 L K/mm3 (0.9-3.2) [place] # (Auto) 0.4 K/mm3 (0.1-0.6) Eos # (Auto) 0.0 K/mm3 (0-0.3) Baso # (Auto) 0.0 K/mm3 (0.0-0.1) Abs Immat Gran (auto) 0.02 K/mm3 (0.00-0.031) Absolute Neuts (auto) 5.7 K/mm3 (1.3-6.7) Absolute Nucleated RBC 0.000 K/mm3 (0.0-0.012) Nucleated RBC % 0.0 % (0.0-0.2) Sodium 137 mmol/L (137-145) Potassium 4.1 mmol/L (3.4-5.0) Chloride 108 H mmol/L (98-107) Carbon Dioxide 20 L mmol/L (22-30) Anion Gap 9 mmol/L (4-12) BUN 6 L D mg/dL (7-17) Creatinine 0.60 L mg/dL (0.7-1.0) Estim Creat Clear Calc 106 ml/min Estimated GFR > 60 (59 - ) Glucose 98 mg/dL (65-110) Calcium 8.3 L mg/dL (8.4-10.2) Total Bilirubin 2.1 H mg/dL (0.2-1.3) AST 322 H U/L (14-36) ALT 273 H U/L (6-35) Alkaline Phosphatase 78 U/L (38-126) C-Reactive Protein 3.4 H mg/dL (<1.0) Total Protein 7.0 g/dL (6.3-8.2) Albumin 3.6 g/dL (3.5-5.1) POC Urine HCG, Qual Negative (Negative) Influenza A (RT-PCR) Negative (Negative) Influenza B (RT-PCR) Negative (Negative) RSV (RT-PCR) Negative (Negative) SARS-CoV-2 RNA (RT-PCR) Negative (Negative) Patient hx anesthesia problems: none Family hx anesthesia problems: none Results Review: All pre-operative results and documents have been reviewed as part of the pre-operative evaluation. [facility] Surgical History Surgical History H/O section 2019, 2022 History of cholecystectomy 2018 Family History Family History Father Alcoholism in family member Grandparent Heart disease Social History Social History Smoking status: Never smoker Alcohol intake: never Substance use: never Do You Feel Safe in your Home?: Yes Lack of Transportation: No Lack of Food: Never True Current Housing: I Have Housing Concerned About Future Housing: No Difficulty Paying Gas/Electric Bills: No Difficulty Paying for Meds: No Currently Unemployed: No Education: Bachelor's Degree Difficulty w/ Childcare or Family Care: No Living arrangements: with family Occupation/Education: occupation Additional occupation/education comments: RN, 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 Gender identity (if verbalized by the patient): Female Sexual Orientation (if Verbalized by the Patient): Straight or Heterosexual Spiritual care concerns: No Agree to blood products: Yes Anes - Eval Final PreProcedure Day of Procedure 04/30/24 16:43 Patient weight: overweight Heart: regular rate and rhythm Lungs: clear to auscultation Airway: Mallampati scale class II Last oral intake: >/= 8 hours ASA classification: II Emergent: yes Anesthetic plan: proceed Anesthesia type and monitoring: general ETT Results Review: All pre-operative results and documents have been reviewed as part of the pre-operative evaluation. Informed Consent: The patient's anesthetic plan and its attendant risks and benefits were discussed with the patient/family/POA. Questions were solicited and answers provided to the satisfaction of the patient/family/POA.
[2024-04-30] MEDS: BUPIVACAINE/EPINEPHRINE 0.5% 50 ML VIAL 30 ML INFILTRATE (17:18)
--- NOTE | 2024-04-30 17:50 | P.PNAN_ITS ---
Anes - Eval Final PreProcedure Day of Procedure 04/30/24 17:50 Patient weight: overweight Heart: regular rate and rhythm Lungs: clear to auscultation Airway: Mallampati scale class II Neurological: alert and oriented Last oral intake: >/= 8 hours ASA classification: II Emergent: no Anesthetic plan: proceed Anesthesia type and monitoring: general ETT and standard monitoring Results Review: All pre-operative results and documents have been reviewed as part of the pre- operative evaluation. Informed Consent: The patient's anesthetic plan and its attendant risks and benefits were discussed with the patient/family/POA. Questions were solicited and answers provided to the satisfaction of the patient/family/POA.
[2024-04-30] MEDS: LACTATED RINGERS 1,000 ML 30 ML IV CONT (18:00)
--- NOTE | 2024-04-30 18:38 | P.OP_ITS ---
Procedure Note - Detailed Date of Procedure 04/30/24 Pre-op Diagnosis RLQ abd pain Post-op Diagnosis Same Procedure Performed Diagnostic laparoscopy, laparoscopic adhesiolysis, laparoscopic appendectomy, laparoscopic removal mesenteric lymphadenopathy Surgeon Deniz Montalvo MD Director Of Donor Relations Gennaro reyna [employer] Anesthesia General and Local Indications Patient came to the emergency room yesterday. She had a history of experiencing periumbilical pain about 5:00 a.m. yesterday which later moved to the right lower quadrant. She had nausea and vomiting and was very tender over McBurney's point[place] [id number] scan however showed a normal appendix. She was started on Zosyn and brought into the hospital. Her pain persisted and in fact she had to be placed on a morphine sulfate [employer] for pain control last night. She continues to have tenderness and right lower quadrant severe pain. She had a pelvic ultrasound today and this was negative as well. She is taken to surgery now for severe right lower quadrant abdominal pain. Findings Patient's appendix did foot appear normal. It was completely removed. She had some adhesions to the right side of the anterior aspect of her uterus. These were to the anterior abdominal wall. Ovaries and tubes appeared normal although the left ovary did have some small cysts. She was found to have a Meckel's diverticulum. She was noted to have multiple enlarged lymph nodes in the distal ileal mesentery. Photographs were taken of the lymph nodes, the Meckel's diverticulum, the tubes and ovaries and the uterine adhesions. Postoperative conclusion is most likely mesenteric adenitis. Description of Procedure Patient was taken to surgery and induced into general anesthesia. The abdomen is prepped and draped. Trocars were placed in the usual fashion on the left side of the abdomen. An applied [employer] optical trocar and a 5 mm camera were used. Once we had the trocars in place, patient was placed in Trendelenburg with the right-side elevated. Findings were as noted above. The appendix was found easily. It was grasped and elevated anteriorly. Dissection was carried out in the mesoappendix. Appendiceal artery was thoroughly cauterized and divided. We continued dissection until the base of the appendix was skeletonized. I then ligated the appendix at its base with a Vicryl endoloop. A 2nd Vicryl endoloop was placed above the base of the appendix. The appendix was amputated just above the lower most ligature. The appendix was placed in an Endo-Catch bag retrieved through the 10 11 epigastric trocar site. The epigastric trocar was then replaced and we continued laparoscopic evaluation. The right and left tubes and ovaries were then evaluated and photographs were taken. Adhesions of the uterus to the anterior abdominal wall were noted but nothing done at this time. I then looked at the terminal ileum and examined the mesentery to the distal ileum. There were multiple, enlarged, easily seen lymph nodes evident. Photographs were taken of this lymphadenopathy. One particularly superficial an enlarged node was then carefully dissected free from the ileal mesentery. It was sent to pathology for evaluation in formalin. Finally I looked for and found a Meckel's diverticulum in the ileum. It was in the appropriate position about 2 ft from the ileocecal valve. It did not appear thickened, erythematous, edematous or otherwise inflamed. Photographs were taken of this as well. Finally I looked again to the pelvis and dissected the adhesions of the right side of the uterus to the anterior abdominal wall releasing the uterus to be in a more level, typical position. We checked all the areas of dissection and there was no evidence of bleeding or other issues. We then evacuated CO2 and removed the trocar sleeves. Skin wounds were closed with subcuticular 4-0 Monocryl skin suture. The wounds were dressed with Exofin surgical adhesive. The patient was awakened and taken to recovery in good condition. Sponge needle counts were correct x2. Estimated Blood Loss -10 Urine Output 700 Drains No Packing No Pathology Yes (Appendix, enlarged ileal mesenteric lymph node) Complications None Condition Stable Disposition PACU [facility] Billing Surgery - Charge Forward: Surgery Billing (Diagnostic laparoscopy, laparoscopic adhesiolysis, laparoscopic appendectomy, laparoscopic removal of mesenteric lymphadenopathy.)
[2024-04-30] MEDS: ONDANSETRON INJ 4 MG/2 ML VIAL IV PUSH (19:00)
[2024-04-30] MEDS: MORPHINE SULFATE (*CRX) 2 MG/ML INJ IV PUSH (19:43)
[2024-04-30] MEDS: LACTATED RINGERS 1,000 ML 80 ML IV CONT (19:43)
[2024-04-30] MEDS: diphenhydrAMINE HCl INJ 50 MG/ML VIAL 25 MG IV PUSH (21:30)
[2024-04-30] MEDS: oxyCODONE/ACETAMINOPHEN (*CRX) 10-325 MG TABLET 1 TAB PO (21:34)
[2024-05-01 00:52] VITALS: BP 110/63; PULSE 102; RESP 16; TEMP 36.3; O2SAT 98
[2024-05-01] MEDS: MORPHINE SULFATE (*CRX) 2 MG/ML INJ IV PUSH (00:56)
[2024-05-01] MEDS: oxyCODONE/ACETAMINOPHEN (*CRX) 5-325 MG TABLET 1 TABLET PO ×3 (02:47→11:57)
[2024-05-01 05:03] VITALS: BP 90/60; PULSE 77; RESP 16; TEMP 36.4; O2SAT 97
[2024-05-01] MEDS: PIPERACILLN/TAZ 3.375GM/NS50ML 3.375 GM/50 ML BAG IVPB (05:34)
[2024-05-01 06:28] LABS: Hematocrit 32.9 % (37.0-47.0); Hemoglobin 10.6 g/dL (12.0-15.0); Mean Corpuscular HGB Conc 32.2 g/dl (32-36); Mean Corpuscular Hemoglobin 27.5 pg (26-34); Mean Corpuscular Volume 85.2 fl (80-100); Mean Platelet Volume 12.2 fl (7.4-10.4); Platelet Count Result 197 k/mm3 (150-375); Red Blood Count 3.86 M/mm3 (4.2-5.4); Red Cell Distribution Width 13.3 % (11.5-14.5); White Blood Count 9.1 K/mm3 (4.5-10.0)
[2024-05-01 06:38] LABS: Anion Gap 7 mmol/L (4-12); Blood Urea Nitrogen 7 mg/dL (7-17); Calcium 8.4 mg/dL (8.4-10.2); Carbon Dioxide 24 mmol/L (22-30); Chloride 107 mmol/L (98-107); Estimated CRCL calculation 92 ml/min; Estimated Glomerular Filt Rate > 60; Glucose 129 mg/dL (65-110); Potassium 4.1 mmol/L (3.4-5.0); Sodium 138 mmol/L (137-145)
[2024-05-01 09:03] VITALS: BP 110/64; PULSE 83; RESP 16; TEMP 36.3; O2SAT 97
[2024-05-01] MEDS: ENOXAPARIN 40 MG/0.4 ML SYRINGE SUB-Q (09:18)
[2024-05-01] MEDS: SIMETHICONE 80 MG TAB.CHEW PO (10:13)
[2024-05-01 10:25] LABS: Alanine Aminotransferase 228 U/L (6-35); Albumin Level 3.4 g/dL (3.5-5.1); Alkaline Phosphatase 78 U/L (38-126); Aspartate Amino Transferase 137 U/L (14-36)
--- NOTE | 2024-05-01 11:43 | PM.PNGS ---
Progress Note: A&P Assessment and Plan (1) Right lower quadrant abdominal pain: Code(s): R10.31 - Right lower quadrant pain Status: Acute Assessment and Plan: Patient is postop day 1 following diagnostic laparoscopy with laparoscopic adhesiolysis, laparoscopic appendectomy, and laparoscopic removal of mesenteric lymphadenopathy. Her right lower quadrant abdominal pain has nearly resolved. She is only complaining of incisional soreness today. Findings during surgery showed mesenteric adenitis, some adhesions on her uterus that were taken down, and a Meckel's diverticulum that appeared otherwise normal with no evidence of diverticulitis. Her appendix and mesenteric lymph node was sent to pathology. She is tolerating a regular diet and appears comfortable this morning. She is stable from a surgical standpoint to discharge home today. We will have her follow-up in the office with Dr. Montalvo in 2 weeks. No need for antibiotics on discharge. (2) Mesenteric adenitis: Code(s): I88.0 - Nonspecific mesenteric lymphadenitis Status: Acute Assessment and Plan: Findings during surgery. She is already feeling much better today with no RLQ pain. This is a self-limiting process that is treated symptomatically. She is stable for discharge. Pathology of the mesenteric lymph node can be discussed as an outpatient in follow-up. Plan I have discussed the patient's case and plan of care with Dr. Montalvo. Subjective Subjective Date/Time Seen: 05/01/24 11:43 Patient reports: no new complaints, feels better, pain is less, tolerating a regular diet, voiding w/o difficulty, flatus, no bowel movement and afebrile Interval history: Denies any right lower quadrant pain today. She reports mild soreness across her entire abdomen, but no pain. No nausea or vomiting. She is feeling much better. Tolerating activity. Exam Const: General: comfortable and no acute distress GI: Inspection: non-distended and incision (incisions dry and intact) GI Palp: Yes Soft to palpation, Yes Tenderness to palpation present (GI) (Minimal expected incisional tenderness, no RLQ TTP) and No Guarding due to palpation present (GI) Auscultation: normal bowel sounds Psych: Mental Status: mental status grossly normal Insight: Good insight present (Psych) Objective Data Vital Signs Vital Signs: Vital Signs - 24 hr 04/30/24 12:08 04/30/24 12:08 04/30/24 14:00 Temperature 97.4 F L Pulse Rate 85 Respiratory Rate 18 18 18 Blood Pressure 103/66 Pulse Oximetry 100 99 95 Oxygen Delivery Oxygen Flow Rate 04/30/24 16:00 04/30/24 18:00 04/30/24 18:15 Temperature 97.0 F L 97.6 F Pulse Rate 93 90 87 Respiratory Rate 14 16 16 Blood Pressure 110/66 96/55 L 95/52 L Pulse Oximetry 97 99 100 Oxygen Delivery Room Air Simple Face Mask Simple Face Mask Oxygen Flow Rate 8 8 04/30/24 18:30 04/30/24 18:45 04/30/24 19:00 Temperature Pulse Rate 85 83 78 Respiratory Rate 16 16 14 Blood Pressure 104/60 99/57 L 101/78 Pulse Oximetry 100 96 96 Oxygen Delivery Simple Face Mask Room Air Room Air Oxygen Flow Rate 8 04/30/24 19:18 04/30/24 20:03 04/30/24 21:00 Temperature 97.4 F L 97.2 F L 97 F L Pulse Rate 93 89 87 Respiratory Rate 16 16 14 Blood Pressure 115/65 115/62 111/70 Pulse Oximetry 97 98 96 Oxygen Delivery Oxygen Flow Rate 05/01/24 00:52 05/01/24 05:03 05/01/24 09:03 Temperature 97.3 F L 97.5 F L 97.3 F L Pulse Rate 102 H 77 83 Respiratory Rate 16 16 16 Blood Pressure 110/63 90/60 L 110/64 Pulse Oximetry 98 97 97 Oxygen Delivery Oxygen Flow Rate 05/01/24 08:00 Temperature Pulse Rate Respiratory Rate Blood Pressure Pulse Oximetry Oxygen Delivery Room Air Oxygen Flow Rate Intake/Output Intake/Output: Intake & Output 04/28/24 04/29/24 04/30/24 05/01/24 23:59 23:59 23:59 23:59 Intake Total 2100 2930 1520 Output Total 2100 Balance 2100 830 1520 Meds/Results Medications: Active Medications Generic Name Dose Route Start Last Admin Trade Name Freq PRN Reason Stop Dose Admin Acetaminophen 500 mg 04/30/24 19:18 Acetaminophen 500 Mg Tablet PO Q6H PRN Pain Rated 1-3 Diphenhydramine HCl 25 mg 04/30/24 16:42 Diphenhydramine Hcl Inj 50 Mg/Ml Vial IV PUSH Q4H PRN Pruritis/Nausea Diphenhydramine HCl 25 mg 04/30/24 21:13 04/30/24 21:30 Diphenhydramine Hcl Inj 50 Mg/Ml Vial IV PUSH 25 mg Q4H PRN Administration Itching Enoxaparin Sodium 40 mg 05/01/24 09:00 05/01/24 09:18 Enoxaparin 40 Mg/0.4 Ml Syringe SUB-Q 40 mg DAILY FACUNDO Administration Piperacillin/Tazobactam/Dextrose 3.375 gm in 50 mls @ 100 mls/hr 04/30/24 00:00 05/01/24 05:34 Zosyn 3.375 Gm/Ns 50 Ml IVPB 100 mls/hr Q6H FACUNDO Administration Ibuprofen 800 mg in 200 mls @ 400 mls/hr 04/30/24 19:18 Caldolor 800 Mg/200 Ml IVPB Q6H PRN Breakthrough Pain Rated 1-3 or NPO Morphine Sulfate 2 mg 04/30/24 19:18 05/01/24 00:56 Morphine Sulfate (*Crx) 2 Mg/Ml Inj IV PUSH 2 mg Q2H PRN Administration Breakthrough Pain Rated 4-6 or NPO Morphine Sulfate 4 mg 04/30/24 19:18 Morphine Sulfate (*Crx) 4 Mg/Ml Inj IV PUSH Q2H PRN Breakthrough Pain Rated 7-10 or NPO Naloxone HCl 0.1 mg 04/30/24 19:18 Naloxone Hcl 0.4 Mg/Ml Vial IV PUSH Q2M PRN Opiate Reversal Oxycodone/Acetaminophen 1 tablet 04/30/24 19:18 05/01/24 07:26 Oxycodone/Acetaminophen (*Crx) 5-325 Mg Tablet PO 1 tablet Q4H PRN Administration Pain Rated 4-6 Oxycodone/Acetaminophen 1 tab 04/30/24 19:18 04/30/24 21:34 Oxycodone/Acetaminophen (*Crx) 10-325 Mg Tablet PO 1 tab Q6H PRN Administration Pain Rated 7-10 Promethazine HCl 25 mg 04/30/24 00:44 04/30/24 19:42 Promethazine Hcl 25 Mg/Ml Ampul IM 25 mg Q4H PRN Administration Intractable nausea vomiting Simethicone 80 mg 05/01/24 09:59 05/01/24 10:13 Simethicone 80 Mg Tab.Chew PO 80 mg Q6HR PRN Administration gas pain Radiology Results: ITS Impressions Chest X-Ray 04/29/24 14:53 IMPRESSION: No acute cardiopulmonary process. Abdomen/Pelvis CT 04/29/24 15:45 IMPRESSION: Mild esophagitis/gastritis. Otherwise, no acute abdominopelvic process detected. Pelvis Ultrasound 04/29/24 16:52 IMPRESSION: Normal pelvic sonogram findings. Abdomen Ultrasound 04/30/24 12:27 IMPRESSION: 1. There is post cholecystectomy. Otherwise unremarkable abdominal ultrasound. Labs Labs: Laboratory Results - last 24 hr 05/01/24 05/01/24 05:37 Unknown WBC 9.1 RBC 3.86 L Hgb 10.6 L Hct 32.9 L MCV 85.2 MCH 27.5 MCHC 32.2 RDW 13.3 Plt Count 197 MPV 12.2 H Sodium 138 Potassium 4.1 Chloride 107 Carbon Dioxide 24 Anion Gap 7 BUN 7 Creatinine 0.70 Estim Creat Clear Calc 92 Estimated GFR > 60 Glucose 129 H Calcium 8.4 Total Bilirubin 1.0 Direct Bilirubin 0.0 AST 137 H ALT 228 H Alkaline Phosphatase 78 Total Protein 6.0 L Albumin 3.4 L
[2024-05-01 13:03] VITALS: BP 118/68; PULSE 72; RESP 16; TEMP 36.4; O2SAT 96
--- NOTE | 2024-05-01 14:17 | P.DS_ITS ---
DS: Admitting Diagnosis Discharge Date 05/01/2024 Admitting Diagnosis Abdominal Discomfort DS: Discharge Diagnosis Discharge Diagnosis (1) Mesenteric adenitis: Code(s): I88.0 - Nonspecific mesenteric lymphadenitis Status: Acute Assessment and Plan: - Diagnostic Laparoscopy consistent with mesenteric adenitis. - s/p Lap adhesiolysis, Lap appendectomy, Lap removal mesenteric lymphadenopathy. - No complications on surgery and pt stable post-op. - Able to tolerate regular diet with minimal gas pain and soreness on Lap incisions. - Pain meds PRN. - Cleared for discharge by general surgery. - Appreciate general surgery assistance. (2) Right lower quadrant abdominal pain: Code(s): R10.31 - Right lower quadrant pain Status: Acute Assessment and Plan: - Resolved post-op. - Likely related to above. Abdomen/Pelvis CT 04/29/24 15:45 IMPRESSION: Mild esophagitis/gastritis. - Pelvic ultrasound normal. - CXR negative. - Patient with only mild gas pain and mild soreness on abdominal Lap incisions post-op. - Tolerating regular diet well. - No further w/u needed. (3) Abdominal pain: Qualifiers: Abdominal location: right lower quadrant Qualified Code(s): R10.31 - Right lower quadrant pain Code(s): R10.9 - Unspecified abdominal pain Status: Acute Assessment and Plan: - Likely related to - Mgt as # 1. (4) Elevated LFTs: Code(s): R79.89 - Other specified abnormal findings of blood chemistry Status: Acute Assessment and Plan: - Likely related to # 1. - CT abdomen only showing mild gastritis/esophagitis. - US abdomen unremarkable. - Trending down and no GI discomfort reported or noted. - Follow-up with PCP for repeat labs. (5) Fever: Qualifiers: Fever type: unspecified Qualified Code(s): R50.9 - Fever, unspecified Code(s): R50.9 - Fever, unspecified Status: Acute Assessment and Plan: - Possibly related to # 1 vs other. - Resolved. (6) Nausea & vomiting: Qualifiers: Vomiting type: unspecified Qualified Code(s): R11.2 - Nausea with vomiting, unspecified Code(s): R11.2 - Nausea with vomiting, unspecified Status: Acute Assessment and Plan: - Unclear etiology. - Possibly related to # 1. - Resolved and tolerating regular diet with no GI discomfort. (7) Diarrhea: Qualifiers: Diarrhea type: unspecified type Qualified Code(s): R19.7 - Diarrhea, unspecified Code(s): R19.7 - Diarrhea, unspecified Status: Acute Assessment and Plan: - Unclear etiology. - CT abd/pelvis non-revealing. - No episodes inpatient. - Appears resolved. Plan Discharge home on self-care. Follow-up with general surgery within 2 weeks. DS: Summary Hospital Course Reason for hospitalization: Abdominal Discomfort Hospital Course: Patient presented to the ER with reports of abdominal discomfort, associated wit h nausea, vomiting and diarrhea. Initial work-up labs was significant for mildly elevated WBC's which were suspected to be possibly reactive to her symptoms, and elevated LFT's. Pt had CT abdomen/pelvis done that showed mild gastritis/esophagitis. Patient was seen by general surgery and after evaluation, diagnostic lap was recommended. Patient was noted with abnormal appendix that was completely removed, She had some adhesions to the right side of the anterior aspect of her uterus to the anterior abdominal wall. She was found to have a Meckel's diverticulum. She was noted to have multiple enlarged lymph nodes in the distal ileal mesentery. Postoperative conclusion was most likely mesenteric adenitis and patient underwent Laparoscopic adhesiolysis, laparoscopic appendectomy, laparoscopic removal mesenteric lymphadenopathy. Patient stable post-op with no complications, and tolerating regular diet well day after surgery. She has been seen by general surgery and cleared for discharge with outpatient follow-up. Patient only reports some soreness to Lap incisions otherwise denies any abdominal pain. No acute distress noted or reported prior to discharge and she's medically stable for discharge. Status at Discharge Functional status at discharge: independent ambulation Overall status at discharge: patient is progressing back to baseline Time Spent with Patient Time attestation: Total time spent providing and/or coordinating discharge services: Time spent: Greater than 30 minutes Exam Narrative: HEENT: Atraumatic, PERRL, EOM, anicteric, moist mucosa. NECK: Supple. Lungs: Clear bilaterally. Garner: RRR, no murmurs. Abdomen: Soft, minimal soreness to lap incisions, +ve bowel soundsX4 quadrants. Extremities: No cyanosis, 2+ pedal and radial pulses, no edema. Skin: Warm and dry. Lap incision CDI with no drainage. Neuro: Well oriented. No focal neuro deficits noted. Psych: Pleasant and co-operative. DS: Data Data Completed and Pending Pending studies at discharge: Pending at discharge 04/30/24 17:04 Surgical [PTH] Routine Surgical [PTH] Routine Labs on day of discharge: Labs from last 24 hours 05/01/24 05/01/24 Unknown 05:37 WBC 9.1 RBC 3.86 L Hgb 10.6 L Hct 32.9 L MCV 85.2 MCH 27.5 MCHC 32.2 RDW 13.3 Plt Count 197 MPV 12.2 H Sodium 138 Potassium 4.1 Chloride 107 Carbon Dioxide 24 Anion Gap 7 BUN 7 Creatinine 0.70 Estim Creat Clear Calc 92 Estimated GFR > 60 Glucose 129 H Calcium 8.4 Total Bilirubin 1.0 Direct Bilirubin 0.0 AST 137 H ALT 228 H Alkaline Phosphatase 78 Total Protein 6.0 L Albumin 3.4 L Discharge Plan Discharge Attending physician on discharge: Harley Jimenez Consulting providers: Deniz Montalvo Discharging Clinician: Deniz Montalvo Anticipated Discharge Date/Time: 05/01/24 14:58 Patient Disposition: Home, Self-Care Activity: may shower, no straining, no driving and other - see discharge instructions Diet: as tolerated and regular Wound Care Instructions: incision open to air Discharge Instructions: DISCHARGE INSTRUCTIONS FOR DR. MONTALVO 1. May shower the day after surgery over incisions. 2. Call office for: * Wound increasingly painful or bleeding * Vomiting * Fever of greater than 101 degrees 3. Expect some blood on dressing and old blood on skin. 4. If no bowel movement for three days, take 1 oz. (30 ml) Milk of Magnesia, if no results, take Fleets enema. 5. No heavy lifting > 10-15 pounds x 2-3 weeks 6. No driving for 3 days or while taking narcotic pain medications. 7. Up walking 10-30 minutes three times per day. 8. Call to schedule follow-up with Dr. Montalvo in our office at 2 weeks. [phone] 9. Oral pain medications prescription sent electronically to the pharmacy Patient Instructions: Antibiotic Form, Pain Management (DC) Stand Alone Forms: General Discharge Information, Work/School Release IP Follow-up/Referrals: Deniz Montalvo MD [Physician] - 2 Weeks Discharge Medications: New hydrocodone-acetaminophen 5-325 mg tablet 1 tablet PO Q4H PRN (Reason: pain) Qty: 10 0RF ondansetron 4 mg tablet,disintegrating 4 mg PO Q6H PRN (Reason: nausea and vomiting) Qty: 20 0RF amoxicillin-pot clavulanate 875-125 mg tablet 1 tablet PO Q12H Qty: 10 0RF Date of admission: 04/29/24 18:41 Primary Care Provider: Jessica Catherine Admitting Provider: Harley Jimenez Attending physician on admission: Harley Jimenez Condition: Stable Quality If No VTE Prophylaxis Answer both mechanical and pharmacologic: Reason no mechanical VTE proph: low risk/not indicated Reason no pharmacologic proph: low risk/not indicated Hospitalist MIPS Heart Failure (Exclusion) Patient has history of Heart Transplant or Left Ventricular Assistive Device?: No IF YES, STOP HERE Heart Failure (Qualifier) Patient has current or prior documentation of LVEF less than or equal to 40%, or mod/servere depressed LVSF?: No IF NO, STOP HERE
[2024-05-01] MEDS: ACETAMINOPHEN 500 MG TABLET PO (14:19)
== END 2024-05-01 15:23 | disposition home or self-care (01) ==
LOC: ANHED 18:50 → ANH3MED 20:13
PROVIDERS: Student in an Organized Health Care Education/Training Program; Surgery; Admitting Provider Internal Medicine; Emergency Provider Emergency Medicine; PCP Family Medicine; Visit Provider Nurse Practitioner Adult Health
PROC: 0DTJ4ZZ Resection of Appendix, Percutaneous Endoscopic Approach (ICD-10-PCS; CPT 44970; principal; 2024-04-30 16:15)
DX: I88.0 Nonspecific mesenteric lymphadenitis (principal); Q43.0 Meckel's diverticulum (displaced) (hypertrophic); R10.31 Right lower quadrant pain; Z11.52 Encounter for screening for COVID-19
CPT/HCPCS: 44970; 38500; 36415; 71045; 74177; 76700; 76856; 80048; 80053; 80076; 81001; 81025; 82948; 83690; 85025; 85027; 86140; 87637; 88304; 88305; 93005; 96361; 96365; 96372; 96375; 96376; 99285; A9270; G0378; J0500; J1100; J1171; J1200; J1650; J1741; J1885; J2250; J2270; J2405; J2543; J2550; J2704; J7030; J7120; Q9967

== ENCOUNTER 2024-05-08 10:13 | Outpatient (CLI) | payer OTHER, SELFPAY ==
[2024-05-08 10:27] LABS: Basophils Percent Auto 0.4 % (0.2-1.2); Eosinophils Absolute Auto 0.3 K/mm3 (0-0.3); Eosinophils Percent Auto 3.1 % (0-4.4); Hematocrit 39.6 % (37.0-47.0); Immature Granulocyte Absolute 0.04 K/mm3 (0.00-0.031); Immature Granulocyte Percent A 0.4 % (0-0.5); Lymphocytes Absolute Auto 1.72 K/mm3 (0.9-3.2); Lymphocytes Percent Auto 16.6 % (18.3-44.2); Mean Corpuscular HGB Conc 32.8 g/dl (32-36); Mean Corpuscular Hemoglobin 27.6 pg (26-34); Mean Corpuscular Volume 84.1 fl (80-100); Mean Platelet Volume 10.4 fl (7.4-10.4); Monocytes Absolute Auto 0.7 K/mm3 (0.1-0.6); Monocytes Percent Auto 6.4 % (2.6-8.5); Neutrophils Absolute Auto 7.6 K/mm3 (1.3-6.7); Neutrophils Percent Auto 73.1 % (45.5-73.1); Platelet Count Result 308 k/mm3 (150-375); Red Blood Count 4.71 M/mm3 (4.2-5.4); Red Cell Distribution Width 12.9 % (11.5-14.5); White Blood Count 10.3 K/mm3 (4.5-10.0)
[2024-05-08 10:42] LABS: Alanine Aminotransferase 60 U/L (6-35); Albumin Level 4.6 g/dL (3.5-5.1); Alkaline Phosphatase 71 U/L (38-126); Anion Gap 7 mmol/L (4-12); Aspartate Amino Transferase 27 U/L (14-36); Bilirubin,Total 0.5 mg/dL (0.2-1.3); Blood Urea Nitrogen 16 mg/dL (7-17); Calcium 9.5 mg/dL (8.4-10.2); Carbon Dioxide 24 mmol/L (22-30); Chloride 107 mmol/L (98-107); Estimated Glomerular Filt Rate > 60; Glucose 94 mg/dL (65-110); Potassium 4.5 mmol/L (3.4-5.0); Sodium 138 mmol/L (137-145)
[2024-05-08 10:59] LABS: Iron 39 ug/dL (37-170)
[2024-05-08 11:31] LABS: Hepatitis B Surface Antigen Negative (Negative)
[2024-05-08 11:37] LABS: HAV RESULT Negative (Negative); Hepatitis B Core IgM Result Negative (Negative)
[2024-05-08 11:39] LABS: Percent Iron Saturation 9 % (20-50)
[2024-05-08 11:49] LABS: Hepatitis C Virus Antibody Negative (Negative)
== END 2024-05-08 10:14 | disposition home or self-care (01) ==
LOC: ANHLAB 10:14
PROVIDERS: PCP Family Medicine; Visit Provider Student in an Organized Health Care Education/Training Program
DX: R79.89 Other specified abnormal findings of blood chemistry (principal); D64.9 Anemia, unspecified
CPT/HCPCS: 36415; 80053; 80074; 82728; 83540; 83550; 85025

== ENCOUNTER 2024-12-11 10:58 | Outpatient (CLI) | payer OTHER, SELFPAY ==
--- NOTE | ~2024-12-11 | US_ITS ---
EXAMINATION: US OB /maternal detail DATE: 12/11/2024 11:42 INDICATION: Assess anatomic survey placental location during second trimester . TECHNIQUE: Multiple obstetric sonographic images performed. FINDINGS: There is a single living fetus in vertex presentation. The placenta is posterior fundal and not low- lying with caudal margin 8 cm from the internal cervical os. Normal cervical length of 3.1 cm. Amniot ic fluid volume is subjectively normal. The following anatomy was identified as normal: Ventricles, choroid plexus, falx and cava septum pellucidum Cerebellum and cisterna magna Nuchal fold Upper lip Spine Heart Diaphragm Stomach Kidneys Bladder 3 vessel cord and cord insertion Bilateral upper and lower extremities including hands and feet The following biometric data were obtained: BPD: 5.0 cm -> 21 weeks 1 days Head circumference: 18.7 cm -> 21 weeks 0 days Abdominal circumference: 15.1 cm -> 20 weeks 2 days Femur length: 3.4 cm -> 20 weeks 5 days These measurements are concordant. Head circumference to abdominal circumference ratio: 1.24 (normal range 1.06-1.25). Estimated weight: 365 g (+/-) 55 g. or 13 oz. (+/-) 2 oz. IMPRESSION: 1. Single living fetus with presentation with heart rate of 161 bpm. 2. Gestational age by ultrasound of 20 weeks 6 day(s) (+/-) 1 week 3 day(s) with ultrasound estimat ed date of delivery (YI) of 03/24/2025. Estimated weight is 47th percentile by Hadlock criteri a when 04/26/2025 is used as the YI. Please correlate with clinical information or earlier ultrasoun ds for most accurate YI. 3. Normal survey. Reviewed, dictated and finalized at location B. IMPRESSION: 1. Single living fetus with presentation with heart rate of 161 bpm. 2. Gestational age by ultrasound of 20 weeks 6 day(s) (+/-) 1 week 3 day(s) w ith ultrasound estimated date of delivery (YI) of 03/24/2025. Estimated weight is 47th percentile by Hadlock criteria when 04/26/2025 is used as the ED D. Please correlate with clinical information or earlier ultrasounds for most a ccurate YI. 3. Normal survey.
== END 2024-12-11 10:59 | disposition home or self-care (01) ==
LOC: MICIMG 11:00
PROVIDERS: PCP Obstetrics & Gynecology; Visit Provider Obstetrics & Gynecology
DX: Z36.3 Encounter for antenatal screening for malformations (principal)
CPT/HCPCS: 76805

== ENCOUNTER 2025-01-31 09:16 | Outpatient (CLI) | payer OTHER, SELFPAY ==
--- OUTSIDE RECORDS SUMMARY | 2025-01-31 09:40 | XMS_ITS | Continuity of Care Document ---
Author Name [facility] Organization [facility] Care Team Providers Care Freight And Passenger Agent Name Role Phone [facility] Unavailable Unavailable Immunizations Combined list of available immunizations from the Department of Defense and Veterans [facility] facilities. Immunization Series Date Given Administered By Site Reaction Lot Number CVX Code Drug Lead Based Paint Technician Status Comments Source Influenza, inj, MDCK, quadrivalent- pf 2021 171 Seqirus complet ed Influenza , inj, MDCK, quadrival ent-pf 04/07/22 Given Ambulat ory Pharmac y Encounters Combined list of: 1) Encounters from Department of Veterans Affairs facilities going backup to the last 18 months, not all [place] inpatient encounters are included; 2) Encounters from the Department of [facility] facilities going backup to 280 months. Location Location Details Encounter Type Encounter Number Reason For Visit Attending Provider ADM Date DC Date Status Disposition Source [facility](COV ID-19 Managemen t) TELE CONSULT [id number] Notes Entered by: ELSA PIERRE 22 Jul 2020 1359 ------- ------- ------- ------- -- Initial PUI (Isolat ion) IntervEMILE Arredondo 07/22 Other Not Elsewhere Classified [facility](C OVID-19 Managem ent) [facility]) TELE CONSULT [id number] Notes Entered by: Tereza CAMPBELL 23 Jul 2020 1530 ------- ------- ------- ------- -- COVID positiv e w/sympt CARITO Olvera 07/23 Referred for Appointment [facility]) [facility](COV ID-19 Managemen t) OUTPATIENT [id number] [facility] f/u [phone] HARSH BHAT 07/24 Sick at Home/Quarter s [facility](C OVID-19 Managem ent) [facility](COV ID-19 Managemen t) OUTPATIENT [id number] VIRT: COVID NEG F/U HARSH BHAT 07/25 Released w/o Limitations [facility](C OVID-19 Managem ent) [facility]) TELE CONSULT [id number] Notes Entered by: DEVON MOHAN 29 Jul 2020 1304 ------- ------- ------- ------- -- FLOWER set up HARSH BHAT 07/29 [facility]) Procedures Combined list of: 1) Procedures from Department of Veterans Affairs facilities going back up to thelast 18 months, not all VA non-surgical procedures are included; 2) All procedures from the Department of Defense facilities. Procedure Procedure Type Code Date Perfomer Comments Sourc e No data available for this section Ambulatory Pharmacy WAIVER SERVICES; NOT OTHERWISE SPECIFIED (NOS) 07/29/2020 DoD WAIVER SERVICES; NOT OTHERWISE SPECIFIED (NOS) 07/24/2020 DoD TELE ASSESS & MGT SRV PROV QUAL NONPHYS HLTH CARE PRO TO EST PAT,PARENT,GUAR D NOT ORIG REL ASSESS & MGT SRV PROV W/IN PREV 7 DAYS NOR LEAD ASSESS & MGT SRV/PX W/IN NXT 24H/SOON APT; 11-20 MIN MED DIS 07/23/2020 [facility] Non-Physician Phone Call To Pt/Provider Intermed (11-20 min) Non-Physician Phone Call To Pt/Provider Intermed (11-20 min) [id number] CARITO CAMPBELL DoD Waiver services; not otherwise specified (NOS) HARSH BHAT [facility] Social History Combined list of available smoking, tobacco, and other social history from Department of Defense and Veterans Affairs facilities. Social History Type Response Date Comment Sourc e This section is an empty social history section. DoD Assessment and Plan Combined list of future care activities from Department of Defense and Veterans Affairs facilities (e.g., assessment and plan notes, appointments, orders, and referrals). Additional future care activities may be listed in the Plan of Care section. Result Assessment and Plan Date Source Assessment and Plan No data available for this section 01/31/2025 Ambulatory Pharmacy Functional Status Combined list of recent functional and cognitive assessments recorded at Department of Defense and Veterans Affairs (VA).VA Functional [place] Measurement (FIM) Scale: 1 = Total Assistance (Subject = 0% +), 2 = Maximal Assistance (Subject = 25% +), 3 = Moderate Assistance (Subject = 50% +), 4 = Minimal Assistance (Subject = 75% +), 5 = Supervision, 6 = Modified [place] (Device), 7 = Complete [place] (Timely, Safely). Assessment Date/Time Source Assessment Type Assessment Skill Assessment Score Assessment Details No data available for this section
--- OUTSIDE RECORDS SUMMARY | 2025-01-31 09:41 | XMS_ITS | Patient Health Record ---
Author Organization [facility] us Address [address] [place] [address] Care Team Providers Care Car Lubricator Name Role Phone Unknown, Unknown Primary Care Provider Unavailab le Allergies No Known Allergies Reason For Referral No Information Social History Tobacco Use: Social History Observation Description Date Details (start date - stop date) Never Smoker NA - NA Tobacco Use/Smoking Question Answer Notes You are a nonsmoker Tobacco use other than smoking: Question Answer Notes Are you an other tobacco user? No Problems Problem Type SNOMED Code ICD Code Onset Dates Problem Status W/U Status Risk Notes Problem Frequency of urination (R35.0) Active confirmed Plan Of Treatment No Information Insurance Providers Payer Name Payer Address Payer Phone Subscriber Number Group Number Insured Name Patient Relationship to Insured Coverage Start Date Coverage End Date [facility] (ENDING 4) [address] [place] [address] [id number] SKYLA KEITA Spouse - patient is the spouse of the insured
[2025-01-31 10:40] LABS: Hematocrit 31.2 % (37.0-47.0); Hemoglobin 10.4 g/dL (12.0-15.0); Mean Corpuscular HGB Conc 33.3 g/dl (32-36); Mean Corpuscular Hemoglobin 30.2 pg (26-34); Mean Corpuscular Volume 90.7 fl (80-100); Platelet Count Result 192 k/mm3 (150-375); Red Blood Count 3.44 M/mm3 (4.2-5.4); White Blood Count 11.6 K/mm3 (4.5-10.0)
[2025-01-31 11:04] LABS: Glucose 1 Hour PP 50gm Dose 111 mg/dL
[2025-01-31 11:43] LABS: HIV 1/2 Ab P24 Ag Result Negative (Negative)
[2025-01-31 11:53] LABS: Syphilis IgG/IgM Antibody Non-Reactive (Nonreactive)
== END 2025-01-31 09:17 | disposition home or self-care (01) ==
LOC: ANHLAB 09:17
PROVIDERS: Visit Provider Obstetrics & Gynecology
DX: Z34.90 Encounter for supervision of normal pregnancy, unspecified, unspecified trimester (principal); Z20.6 Contact with and (suspected) exposure to human immunodeficiency virus [HIV]
CPT/HCPCS: 36415; 82947; 85027; 86593; 86703; G0432

== ENCOUNTER 2025-04-21 06:32 | Outpatient (CLI) | payer OTHER, SELFPAY ==
--- OUTSIDE RECORDS SUMMARY | 2025-04-21 06:37 | XMS_ITS | Continuity of Care Document ---
Author Name [facility] Organization [facility] Care Team Providers Care Child And Family Services Worker Name Role Phone [facility] Unavailable Unavailable Immunizations Combined list of available immunizations from the Department of Defense and Veterans [facility] facilities. Immunization Series Date Given Administered By Site Reaction Lot Number CVX Code Drug Athletic Trainer Status Comments Source Influenza, inj, MDCK, quadrivalent- pf 2021 171 Seqirus complet ed Influenza , inj, MDCK, quadrival ent-pf 04/07/22 Given Ambulat ory Pharmac y Encounters Combined list of: 1) Encounters from Department of Veterans Affairs facilities going backup to the last 18 months, not all [place] inpatient encounters are included; 2) Encounters from the Department of [facility] facilities going backup to 280 months. Location Location Details Encounter Type Encounter Number Reason For Visit Attending Provider ADM Date DC Date Status Disposition Source [facility](COV ID-19 Managemen t) TELE CONSULT [id number] Notes Entered by: ELSA PIERRE 22 Jul 2020 1359 ------- ------- ------- ------- -- Initial PUI (Isolat ion) IntervEMILE Arredondo 07/22 Other Not Elsewhere Classified [facility](C OVID-19 Managem ent) [facility]) TELE CONSULT [id number] Notes Entered by: Tereza CAMPBELL 23 Jul 2020 1530 ------- ------- ------- ------- -- COVID positiv e w/sympt CARITO Olvera 07/[address] [email or web address](COV ID-19 Managemen t) OUTPATIENT [id number] 9 [facility] f/u [phone] HARSH BHAT 07/24 Sick at Home/Quarter s [facility](C OVID-19 Managem ent) [facility](COV ID-19 Managemen t) OUTPATIENT [id number] VIRT: COVID NEG F/U HARSH BHAT 07/25 Released w/o Limitations [facility](C OVID-19 Managem ent) [facility]) TELE CONSULT [id number] Notes Entered by: DEVON MOHAN 29 Jul 2020 1304 ------- ------- ------- ------- -- FLOWER set up HARSH BHAT 07/29 [email or web address] Procedures Combined list of: 1) Procedures from Department of Veterans Affairs facilities going back up to thelast 18 months, not all VA non-surgical procedures are included; 2) All procedures from the Department of Defense facilities. Procedure Procedure Type Code Date Perfomer Comments Sourc e No data available for this section Ambulatory Pharmacy Non-Physician Phone Call To Pt/Provider Intermed (11-20 min) Non-Physician Phone Call To Pt/Provider Intermed (11-20 min) [id number] CARITO CAMPBELL DoD Waiver services; not otherwise specified (NOS) Waiver services; not otherwise specified (NOS) [id number] HARSH BHAT DoD WAIVER SERVICES; NOT OTHERWISE SPECIFIED (NOS) 07/29/2020 DoD WAIVER SERVICES; NOT OTHERWISE SPECIFIED (NOS) 07/24/2020 DoD TELE ASSESS & MGT SRV PROV QUAL NONPHYS HLTH CARE PRO TO EST PAT,PARENT,GUAR D NOT ORIG REL ASSESS & MGT SRV PROV W/IN PREV 7 DAYS NOR LEAD ASSESS & MGT SRV/PX W/IN NXT 24H/SOON APT; 11-20 MIN MED DIS 07/23/2020 DoD Social History Combined list of available smoking, [...] Plan No data available for this section 04/21/2025 Ambulatory Pharmacy Functional Status Combined list of recent functional and cognitive assessments recorded at Department of Defense and Veterans Affairs (VA).VA Functional [place] Measurement (FIM) Scale: 1 = Total Assistance (Subject = 0% +), 2 = Maximal Assistance (Subject = 25% +), 3 = Moderate Assistance (Subject = 50% +), 4 = Minimal Assistance (Subject = 75% +), 5 = Supervision, 6 = Modified [place] (Device), 7 = Complete [place] (Timely, Safely). Assessment Date/Time Source Assessment Type Assessment Skill Assessment Score Assessment Details No data available for this section
--- OUTSIDE RECORDS SUMMARY | 2025-04-21 06:38 | XMS_ITS | Patient Health Record ---
Author Organization [facility] Address [address] [place] [address] Support Name Relationship Address Phone SAHIL BOWLES Guarantor Unknown Reason For Referral No Information Problems Problem Type SNOMED Code ICD Code Onset Dates Problem Status W/U Status Risk Notes Problem Tuberculosis screening ([id number]) PPD SCREENING TEST (Z11.1) Inactive confirmed Plan Of Treatment No Information
--- OUTSIDE RECORDS SUMMARY | 2025-04-21 06:38 | XMS_ITS | Clinical Summary ---
Author Organization [facility] Address [address] [place] [address] Care Team Providers Care Employment Representative Name Role Phone YangDeniz DO Primary Care Provider [phone] Source Comments [facility],non-owned Affiliates and Associated Physician Practices is amultiple site organization consisting of ambulatory clinics and hospital sitesin [place], [place], [place] and [place]. This disclosure is being madepursuant to the Care Everywhere program and may not contain all information available regarding this patient. Last updated 18.[facility] Allergies Active Allergy Reactions Criticality Noted Date Comments Beef-Derived Products 10/27/2010 Chocolate 10/27/2010 Peanut-Derived 10/27/2010 Wheat 10/27/2010 Medications * Be aware that medications may not be up to date on this document. Alwaysverify current medications with the patient. norgestimate-et hinyl estradiol (ORTHO-CYCLEN, 28,) 0.25-35 MG-MCG tablet Take 1 Tab by mouth daily. orthotricyclin Active Other Active Other Take 2 Tabs by mouth 2 times daily. Probiotic Multi-Enzyme Digestive Formula tabs Active acetaminophen (TYLENOL) 500 MG tablet Take 1 Tab by mouth every 4 hours as needed for Pain. Maximum allowable Acetaminophen amount = 4 Grams (4000 mg) / 24 hours. 30 Tab 2 10/29/19 11 Active hyoscyamine CR (LEVBID) 0.375 MG tablet Take 1 Tab by mouth every 12 hours as needed for Spasms (pain). 30 Tab 1 10/29/19 11 Active cyproheptadine (PERIACTIN) 4 MG tabletIndicatio ns:Abdominal pain, unspecified site Take 1 Tab by mouth 2 times daily. PT WILL NEED TO BE SEEN BEFORE FURTHER REFILLS ARE GIVEN 30 Tab 1 06/30/19 12 Active omeprazole (PRILOSEC) 20 MG capsule Take 1 Cap by mouth daily before breakfast. PT MUST BE SEEN BEFORE FURTHER REFILLS ARE GIVEN 30 Cap 1 06/30/19 12 Active Active Problems Problem Noted Date Diagnosed Date Abdominal pain, generalized 10/28/2010 Overview (12/02/2010): 14yo with classic symptoms of IBS. All started with sister's attempted suicide. Diarrhea comes and goes along with abdominal pain. Certain foods make it worse. Was admitted for pain control and observation. Did well overnight NPO. The next AM, felt okay. Started on bland diet and tolerated well. Psychology consulted and felt she has an adjustment d/o but seemed to be coping well. List of local psychologists given to the family. She was discharged home with instructions to continue bland diet. She was discharged on Prilosec, periactin, levbid and tylenol for pain. Advised to avoid ibuprofen. 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 Gender Identity Not on file Sexual Orientation Not on file Last Filed Vital Signs Vital Sign Reading Time Taken Comments Blood Pressure 96/56 10/28/2010 8:55 AM CDT Pulse 86 10/28/2010 12:20 PM CDT Temperature 36.7 C (98 F) 10/28/2010 8:55 AM CDT Respiratory Rate 18 10/28/2010 12:20 PM CDT Oxygen Saturation 100% 07/13/2010 7:55 AM BREAKER UNIT ASSEMBLER Inhaled Oxygen Concentration - - Weight 55.1 kg (121 lb 7.6 oz) 10/27/2010 9:45 A M CDT Height 156 cm (5' 1.42) 10/27/2010 9:45 AM CDT Body Mass Index 22.64 10/27/2010 9:45 AM CDT Plan of Treatment Health Maintenance Due Date Last Done Comments HIV SCREENING 11/03/2010 HEPATITIS C SCREENING 10/30/2013 DTAP/TDAP/TD VACCINES (1 - Tdap) 11/03/2014 HEPATITIS B VACCINE (1 of 3 - 19+ 3-dose series) 11/03/2014 PAP SMEAR 11/03/2016 HPV VACCINE (1 - 3-dose SCDM series) 11/03/2022 DEPRESSION SCREENING 06/13/2024 COVID-19 VACCINE (1 - 2023-2 5 season) 2025 INFLUENZA VACCINE (#1) 2025 ZOSTER VACCINE (1 of 2) 11/03/2045 HIB VACCINE Aged Out No longer eligi ble based on patient's age to complete this topic MENINGOCOCCAL (Group B) VACC INE SHARED DECISION-MAKING Aged Out No longer eligibl e based on patient's age to complete this topic MENINGOCOCCAL GROUPS A/C/Y/W VACCINE Aged Out No longer eligible b ased on patient's age to complete this topic PNEUMOCOCCAL VACCINE Aged Out No long er eligible based on patient's age to complete this topic Insurance SELF PAY NO INSURANCE Member Subscriber Plan / Payer (Ef fective for All Dates) Name:Sahil Calderon Member ID:Not on file Relation to Subscriber:Not on file Name:SAHIL CALDERON Subscriber ID:Not on file (Home) Address: [address] [place] [address] Payer ID:Not on file Group ID:Not on file Type:Self Pay Address: [place], [place] Care Teams Employment Representative Relationship Specialty Start Date End Date Deniz Yang DO [address] [address] PCP - General 06/01/10
[2025-04-21 06:57] LABS: Hematocrit 29.0 % (37.0-47.0); Hemoglobin 9.9 g/dL (12.0-15.0); Immature Granulocyte Percent A 0.9 % (0-0.5); Lymphocytes Absolute Auto 2.00 K/mm3 (0.9-3.2); Mean Corpuscular HGB Conc 34.1 g/dl (32-36); Mean Corpuscular Hemoglobin 30.7 pg (26-34); Mean Corpuscular Volume 89.8 fl (80-100); Nucleated Red Blood Cells Absolute Auto 0.000 K/mm3 (0.0-0.012); Nucleated Red Blood Cells Perc 0.0 % (0.0-0.2); Platelet Count Result 157 k/mm3 (150-375); Red Blood Count 3.23 M/mm3 (4.2-5.4); White Blood Count 10.5 K/mm3 (4.5-10.0)
[2025-04-21 07:46] LABS: Syphilis IgG/IgM Antibody Non-Reactive (Nonreactive)
== END 2025-04-21 06:33 | disposition home or self-care (01) ==
LOC: ANHOBOP 06:36
PROVIDERS: PCP Family Medicine; Visit Provider Obstetrics & Gynecology
DX: Z01.812 Encounter for preprocedural laboratory examination (principal)
CPT/HCPCS: 36415; 85025; 86593; 86850; 86900; 86901

== ENCOUNTER 2025-04-21 23:21 | Inpatient (IN) | payer OTHER, SELFPAY ==
--- OUTSIDE RECORDS SUMMARY | 2025-04-21 23:28 | XMS_ITS | Clinical Summary ---
Author Organization [facility] Address [address] [address] Care Team Providers Care Service Trainer Name Role Phone YangDeniz DO Primary Care Provider [phone] Source Comments [facility],non-owned Affiliates and Associated Physician Practices is amultiple site organization consisting of ambulatory clinics and hospital sitesin [place], [place], [place] and [place]. This disclosure is being madepursuant to the Care Everywhere program and may not contain all information available regarding this patient. Last updated 18.[facility] Allergies Active Allergy Reactions Criticality Noted Date [...] on file Legal Sex Female 9:39 AM WOMEN'S MINISTRY DIRECTOR Gender Identity Not on file Sexual Orientation Not on file Last Filed Vital Signs Vital Sign Reading Time Taken Comments Blood Pressure 96/56 10/28/2010 8:55 AM CDT Pulse 86 10/28/2010 12:20 PM CDT Temperature 36.7 C (98 F) 10/28/2010 8:55 AM CDT Respiratory Rate 18 10/28/2010 12:20 PM CDT Oxygen Saturation 100% 07/13/2010 7:55 AM WOMEN'S MINISTRY DIRECTOR Inhaled Oxygen Concentration - - Weight 55.1 [...] ID:Not on file (Home) Address: [address] [place] [address] Payer ID:Not on file Group ID:Not on file Type:Self Pay Address: [place], [place] Care Teams Service Trainer Relationship Specialty Start Date End Date Deniz Yang DO [address] [address] PCP - General 06/01/10
[2025-04-21 23:40] VITALS: BP 123/81; PULSE 98
--- NOTE | 2025-04-21 23:58 | LDADM ---
This patient, Cindy Calderon, was admitted to Labor/Delivery/Recovery 120 on 04/21/25 at 23:21. Plans for labor, pain management and were discussed with patient. Patient/family oriented to hospital policies and general routines including ID bracelet, bed and alarms, visiting hours, pain management, procedures, bathroom and other care routines, personal items, smoking policy, room service/diet and guest tray routines, security routines, and visiting hours. Patient/Family are encouraged to report perceived risks to care and to ask questions if they do not understand what they are told or what they should do. See OBIX for further documentation.
[2025-04-22] VITALS (28 sets, daily range): BP systolic 78–107; BP diastolic 43–74; PULSE 51–101; RESP 12–18; TEMP 36.6–37; O2SAT 97–100; BMI 27.8
[2025-04-22] MEDS: LACTATED RINGERS 1,000 ML 125 ML IV CONT ×2 (00:20→00:59)
--- NOTE | 2025-04-22 00:23 | WPDANESEPPF ---
Anes - Initial Pre Proc Eval Procedure: Operation Date: 04/22/25 12:00 Proposed Procedures p Repeat Section - Jose Luis Dumont MD Date/Time: 04/22/25 00:23 Surgeon: Jose Luis Dumont MD Pre Op Diagnosis: Repeat C/S Patient Data Age: 29 Gender: F Height: 1.55 m Weight: 67 kg Last Vital Signs Pulse 98 04/21/25 23:40 BP 123/81 04/21/25 23:40 Allergies Allergy/AdvReac Type Severity Reaction Status Date / Time No Known Allergies Allergy Verified 04/22/25 00:02 Home Medications ?Medication ?Instructions ?Recorded ?Confirmed ?Type docosahexaenoic acid 200 mg mg PO 12/27/24 04/16/25 History capsule ( DHA) RSVPreF3 antigen-AS01E 0.5 ml IM ONCE #1 ea 02/21/25 04/16/25 Rx adjuvant(PF) 120 mcg/0.5 mL IM suspension, kit Patient hx anesthesia problems: none Family hx anesthesia problems: none Results Review: All pre-operative results and documents have been reviewed as part of the pre-operative evaluation. REPLACED BY [facility] Surgical History Surgical History Hx of appendectomy Diagnostic lap, lap dhesiolysis, lap appendectomy, lap removal of mesenteric lymphadenopathy on by Dr. Montalvo History of cholecystectomy 2018 H/O section 2021 Family History Family History Father Alcoholism in family member Grandparent Heart disease Social History Social History Smoking status: Never smoker Second hand tobacco smoke exposure: No Alcohol intake: never Substance use: never Do You Feel Safe in your Home?: Yes Lack of Transportation: No Lack of Food: Never True Current Housing: I Have Housing Concerned About Future Housing: No Difficulty Paying Gas/Electric Bills: No Difficulty Paying for Meds: No Currently Unemployed: No Education: Master's Degree or Higher Difficulty w/ Childcare or Family Care: No Living arrangements: with family Occupation/Education: occupation Additional occupation/education comments: RN, 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 Gender identity (if verbalized by the patient): Female Sexual Orientation (if Verbalized by the Patient): Straight or Heterosexual Spiritual care concerns: No Agree to blood products: Yes Anes - Eval Final PreProcedure Day of Procedure 04/22/25 00:23 Heart: regular rate and rhythm Lungs: clear to auscultation and normal air movement Airway: Mallampati scale Neurological: alert and oriented ASA classification: II Emergent: yes Anesthetic plan: proceed Anesthesia type and monitoring: regional spinal and standard monitoring Results Review: All pre-operative results and documents have been reviewed as part of the pre-operative evaluation. Informed Consent: The patient's anesthetic plan and its attendant risks and benefits were discussed with the patient/family/POA. Questions were solicited and answers provided to the satisfaction of the patient/family/POA.
[2025-04-22] MEDS: ACETAMINOPHEN 500 MG TABLET 1000 MG PO ×5 (00:30→23:17)
[2025-04-22] MEDS: ONDANSETRON INJ 4 MG/2 ML VIAL IV PUSH ×3 (01:15→17:24)
--- NOTE | 2025-04-22 01:16 | PM.IMHP ---
H&P: HPI History of Present Illness Date/Time: 04/22/25 01:16 Chief Complaint: Labor Narrative: 29 y/o at 39 3/7 weeks here with contractions and leakage of fluid. SROM diagnosed on L&D. Prior x 2. Also with history of postopartum hemorrhage. GBS neg. Review of Systems Review of Systems: All systems reviewed & are unremarkable except as noted in HPI and below PMFSH Surgical History Surgical History (Updated 04/22/25 @ 01:21 by JoseL uis Dumont MD) Hx of appendectomy Diagnostic lap, lap dhesiolysis, lap appendectomy, lap removal of mesenteric lymphadenopathy on by Dr. Montalvo History of cholecystectomy 2017 H/O section 2021 Family History Family History Father Alcoholism in family member Grandparent Heart disease Social History Social History Smoking status: Never smoker Second hand tobacco smoke exposure: No Alcohol intake: never Substance use: never Do You Feel Safe in your Home?: Yes Lack of Transportation: No Lack of Food: Never True Current Housing: I Have Housing Concerned About Future Housing: No Difficulty Paying Gas/Electric Bills: No Difficulty Paying for Meds: No Currently Unemployed: No Education: Master's Degree or Higher Difficulty w/ Childcare or Family Care: No Living arrangements: with family Occupation/Education: occupation Additional occupation/education comments: RN, 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 Gender identity (if verbalized by the patient): Female Sexual Orientation (if Verbalized by the Patient): Straight or Heterosexual Spiritual care concerns: No Agree to blood products: Yes Meds Home Medications and Allergies Home Medications ?Medication ?Instructions ?Recorded ?Confirmed ?Type docosahexaenoic acid 200 mg mg PO 12/27/24 04/16/25 History capsule ( DHA) RSVPreF3 antigen-AS01E 0.5 ml IM ONCE #1 ea 02/21/25 04/16/25 Rx adjuvant(PF) 120 mcg/0.5 mL IM suspension, kit Allergies Allergy/AdvReac Type Severity Reaction Status Date / Time No Known Allergies Allergy Verified 04/22/25 00:02 Vital Signs Vital Signs - 24 hr 04/21/25 23:40 Pulse Rate 98 Blood Pressure 123/81 Exam Const: Other: Well-developed, well-nourished female in no acute distress. Neck: Other: Neck: Trachea midline, no thyromegaly or masses. Resp: Other: Lungs: Normal respiratory effort. Clear to auscultation bilaterally. Cardio: Other: Heart: Regular rate and rhythm with normal S1-S2. GI: Other: ABD: Soft, nontender, nondistended, gravid. No guarding or rebound tenderness. No hepatosplenomegaly. NST reactive. TOCO: contractions every 2-3 min. : Other: Cervix: not examined. RomPlus positive. Back/Spine/Pelvis: Other: Back: No CVA tenderness. Skin: Other: Skin: No lesions, rashes or ulcers noted. Extrem: Other: Extremities: nontender with no edema Psych: Other: Mental status grossly normal, with normal mood and affect. Assessment and Plan Assessment and plan (1) Active labor at term: Status: Acute Assessment and Plan: A: IUP at 39 3/7 weeks with SROM/labor, prior , desiring repeat. P: Offered repeat . She understands risks of surgery to include risks of anesthesia, risks of pain, infection, bleeding, blood products, thromboembolic phenomena and damage to adjacent structures such as bowel, bladder, ureters, blood vessels and nerves. She understands all these risks and elects to proceed with surgery. (2) SROM (spontaneous rupture of membranes): Status: Acute (3) H/O section: Code(s): Z98.891 - History of uterine scar from previous surgery Status: Acute
[2025-04-22] MEDS: ceFAZolin 2 GM in SODIUM CHLORIDE 0.9% IV 50 ML 100 ML IVPB (01:20)
[2025-04-22] MEDS: FAMOTIDINE 20 MG/2 ML VIAL IV PUSH (01:20)
--- NOTE | 2025-04-22 01:21 | WPDHPUPDATE1 ---
History and Physical Update Update Date/Time: 04/22/25 01:21 History and Physical has been reviewed, including an updated exam of the patient. There are NO changes in the patient's condition. Risks, benefits, and alternatives have been discussed and questions answered. Patient agrees to proceed with procedure.
[2025-04-22] MEDS: AZITHROMYCIN IV 500 MG in SODIUM CHLORIDE 0.9% IV 250 ML IVPB (01:35)
--- NOTE | 2025-04-22 02:11 | P.PCNOB_ITS ---
OB - Delivery Note Procedure Delivery date: 04/22/25 Pre-op diagnosis: Previous Delivery Post-op Diagnosis: Same Induction method: None Delivery monitor: External FHT and External Uterine Procedure Performed: Repeat Surgeon: Jose Luis Dumont MD Anesthesia type: Spinal Description of Procedure/Findings: Findings: Normal-appearing uterus, tubes and ovaries. Techniques: The patient was taken to the operating room where she was prepared and draped in the usual sterile fashion in dorsal supine position with a leftward tilt. She received cefazolin and azithromycin preoperatively. Spinal anesthesia was found to be adequate. A Pfannenstiel skin incision was made along the previous scar line and was carried through to the underlying layer of the fascia. The fascia was incised in the midline and the incision was extended laterally. The fascia was dissected free of the underlying rectus muscles. The rectus muscles were in the midline. The peritoneum was identified, tented up and entered sharply. The peritoneal incision was extended superiorly and inferiorly with good visualization of the bladder. The bladder blade was placed. The vesicouterine peritoneum was identified, tented up and entered sharply. The incision was extended laterally and the bladder flap was developed. The bladder blade was replaced. The uterus was then incised sharply in a transverse fashion along the lower uterine segment. The incision was extended laterally. The infant's head was delivered atraumatically to the sterile field, followed by the body. The nose and mouth were bulb suctioned. After a delay, the cord was clamped and cut. The infant was handed off the field. Cord blood was collected. The placenta was removed manually and was passed off the field. The uterus was exteriorized and cleared of all clots and debris. The uterine incision was reapproximated using 0 Monocryl in a running, locked fashion. Excellent hemostasis resulted as did excellent reapproximation of the normal anatomy. The uterus was returned the abdomen. The pelvis was irrigated copiously with warmed normal saline. Rigorous hemostasis was assured. The fascial layer was reapproximated using 0 Vicryl in a running fashion. The skin was closed with a running, subcuticular stitch of 4 0 Vicryl. Dermaflex was applied externally. Sponge, lap, needle and instrument counts were correct. The patient was taken to the recovery room in stable condition. The went to the nursery in stable condition. I was present and scrubbed the entire procedure. Specimen: Yes (cord blood) Estimated Blood Loss: 490 Drains: Yes ([place]) Packing: No Pathology: None sent Complications: None Condition: Stable Disposition: PACU [place] Baby Date of : 04/22/25 Time of : 01:42 Gestational Age by Date: 39 gender: Female Weight (pounds): 7 Weight (ounces): 11 presentation: vertex Placenta delivery description: Manual Removal and Normal Configuration Cord Vessel Description: 3 Vessels and Delayed Cord Clamping score one minute: 8 score five minutes: 9
--- NOTE | 2025-04-22 02:13 | P.DS_ITS ---
DS: Admitting Diagnosis Discharge Date 04/23/25 Admitting Diagnosis IUP at 39 3/7 weeks Prior Labor/SROM DS: Discharge Diagnosis Discharge Diagnosis (1) delivery delivered: Code(s): O82 - Encounter for delivery without indication Status: Acute OB - DS: Summary OB Procedures : NST OB Procedures Intrapartum: low cervical, transverse OB Procedures: : None Peripartum Data Procedures: Procedures Operation Date: 04/22/25 12:00 <No data on this case meets the specified criteria> Time Spent with Patient Time attestation: Total time spent providing and/or coordinating discharge services: Discharge Plan Discharge Attending physician on discharge: Jose Luis Dumont Discharging Clinician: Jose Luis Dumont Patient Disposition: Home Activity: pelvic rest Diet: regular Wound Care Instructions: incision open to air Discharge Instructions: Education: Mom and Baby Guide Given to: Mother Follow-Up: Call your delivering provider's office for an appointment to be seen in: Call Dr. Dumont for follow up appointment Mom and baby should come to the [facility] for the follow-up appointment. Appointment Date/Time: April 24, 2025 at 9:00 am What to expect at your follow-up visit: Blood Pressure Check Physical Assessment Call [phone] if you are unable to keep your appointment time. BREAST CARE: * Wear a snug supportive bra. * For engorgement discomfort: Breast Feeding: * Apply warm moist washcloths * Express milk as needed to relieve engorgement * Wear loose clothing Bottle Feeding: * May apply ice packs * For sore nipples: * Identify correct latch-on * Apply warm moist washcloths before and after nursing * Air dry nipples after nursing * May apply Lansinoh cream to nipples ABDOMINAL INCISION: (if applicable) * Allow incision to air dry * Do NOT use lotions for powders on your incision * When showering, allow soap and water to run over the incision, but do not wash incision ACTIVITY: * Rest as much as possible. * Do not exercise or lift anything heavier than your baby (such as laundry or other children.) * Avoid stairs or driving as much as possible. * Do not put anything into the vagina. No douching, tampons, or sexual activity until seen by physician. NOTIFY PHYSICIAN IF YOU HAVE ANY QUESTIONS OR IF ANY OF THE FOLLOWING SYMPTOMS OCCUR: * If your episiotomy or incision becomes red, swollen, or more painful than what you have experienced in the hospital. * If your vaginal bleeding becomes foul smelling. * If your vaginal bleeding becomes more heavy than a period or if your bleeding changes from pink to bright red. However, you may pass an occasional walnut- sized clot once or twice for the first week . * If you experience a sharp, shooting pain in you calves. * If you discover a hard, reddened area on your breast or if you experience flu- like symptoms. DIET: * Eat regular, well-balanced meals. * Drink plenty of fluids daily. If , drink to thirst.Call or return if temperature above 100.4? F, increased abdominal pain, increased vaginal bleeding or any new problems. Patient Language: Tajik Stand Alone Forms: General Discharge Information Follow-up/Referrals: Jose Luis Dumont MD [Physician, [employer]] - 4 Weeks Discharge Medications: New ibuprofen 600 mg tablet 600 mg PO Q6H PRN (Reason: cramps) Qty: 30 0RF oxycodone-acetaminophen [Percocet] 5-325 mg tablet 1 - 2 tablet PO Q6H PRN (Reason: pain) Qty: 30 0RF Continued DHA 200 mg capsule PO Discontinued RSVPreF3 antigen-AS01E (PF) 120 mcg/0.5 mL suspension for reconstitution 0.5 ml IM ONCE Qty: 1 0RF Date of admission: 04/21/25 23:21 Primary Care Provider: FlorinJessica Admitting Provider: Jose Luis Dumont Attending physician on admission: Jose Luis Dumont Condition: Stable
[2025-04-22] MEDS: OXYTOCIN 30 UNITS/NS 500 ML 30 UNITS/500 ML BAG 125 UNITS IV CONT (03:30)
[2025-04-22] MEDS: LIDOCAINE 5% PATCH 1 PATCH TRANSDERM (03:45)
[2025-04-22] MEDS: MORPHINE SULFATE (*CRX) 4 MG/ML INJ 2 MG IV PUSH ×2 (03:55→04:20)
[2025-04-22] MEDS: oxyCODONE HCL (*CRX) 5 MG TAB IR 10 MG PO (05:15)
[2025-04-22] MEDS: DEXTROSE 5%/0.45% SOD CHL 1,000 ML 125 ML IV CONT (08:03)
[2025-04-22] MEDS: KETOROLAC 15 MG/ML VIAL (*BKC) IV PUSH ×3 (08:03→19:46)
--- NOTE | 2025-04-22 08:24 | OBPPTRN ---
0650-Patient transferred to post room #286 via bed. Support person present. Oriented to unit, room, information board, rooming in, admission packet and security measures. Patient verbalizes understanding.
--- NOTE | 2025-04-22 12:25 | PC.NURSE ---
Mother verbalizes she is able to independently latch with appropriate positioning and alignment. She denies any nipple discomfort and is responsively . She breastfed her last two children for 2 years each and her first for 6 months. Mother declines any additional assistance or education at this time. Mother is encouraged to call for assistance if her infant doesn?t latch, pain with latching, questions or concerns. Mother voiced understanding of information shared along with the mom/baby guide for an additional resource. Reported to the Primary RN.
[2025-04-22] MEDS: SIMETHICONE 80 MG TAB.CHEW PO ×2 (13:22→17:21)
[2025-04-22] MEDS: oxyCODONE HCL (*CRX) 5 MG TAB IR PO ×2 (13:22→23:19)
[2025-04-22] MEDS: DOCUSATE SODIUM 100 MG CAPSULE PO (17:21)
[2025-04-23] MEDS: IBUPROFEN 600 MG TABLET PO ×3 (01:48→13:42)
[2025-04-23] MEDS: SIMETHICONE 80 MG TAB.CHEW PO ×3 (04:20→12:19)
[2025-04-23] MEDS: LIDOCAINE 5% PATCH 1 PATCH TRANSDERM (05:05)
[2025-04-23] MEDS: ACETAMINOPHEN 500 MG TABLET 1000 MG PO ×3 (05:05→12:19)
[2025-04-23 05:29] LABS: Hematocrit 23.9 % (37.0-47.0); Hemoglobin 8.0 g/dL (12.0-15.0); Immature Granulocyte Percent A 0.7 % (0-0.5); Lymphocytes Absolute Auto 2.74 K/mm3 (0.9-3.2); Mean Corpuscular HGB Conc 33.5 g/dl (32-36); Mean Corpuscular Hemoglobin 30.4 pg (26-34); Mean Corpuscular Volume 90.9 fl (80-100); Nucleated Red Blood Cells Absolute Auto 0.000 K/mm3 (0.0-0.012); Nucleated Red Blood Cells Perc 0.0 % (0.0-0.2); Platelet Count Result 155 k/mm3 (150-375); Red Blood Count 2.63 M/mm3 (4.2-5.4); White Blood Count 14.8 K/mm3 (4.5-10.0)
[2025-04-23] MEDS: oxyCODONE HCL (*CRX) 5 MG TAB IR PO ×2 (07:34→12:22)
[2025-04-23 07:35] VITALS: BP 109/71; PULSE 83; RESP 16; TEMP 37.2; O2SAT 98
--- NOTE | 2025-04-23 07:47 | WPDANLDPN2 ---
Anes-Prog Note L&D Date/Time: 04/23/25 07:47 Comfortable throughout: section Neuraxial method: spinal Epidural/Spinal procedure site: clean & non-tender Neuro status: Neuro function grossly intact. Cardiovascular status: normal Respiratory status: normal Airway patency: baseline Mental status: baseline Post-Op hydration status: normal Vital Signs: Last Vital Signs Temp 36.7 C 04/22/25 18:50 Pulse 81 04/22/25 18:50 Resp 16 04/22/25 18:50 BP 100/64 04/22/25 18:50 Pulse Ox 98 04/22/25 18:50 O2 Del Method Room Air 04/22/25 03:15 Pain score (VAS): 2 I/O: Intake & Output 04/22/25 04/22/25 04/23/25 15:59 23:59 07:59 Intake Total 890 240 Output Total 1450 Balance -560 240 Patient feedback: Patient satisfied with anesthetic care.
--- NOTE | 2025-04-23 07:47 | WPDANLDNPN2 ---
Anes-Prog Note L&D-Neuraxial Date/Time: 04/23/25 07:47 Neuraxial medications: intrathecal PF morphine Opiod-related complaints: none Patient feedback: Patient satisfied with post-operative pain management.
[2025-04-23] MEDS: DOCUSATE SODIUM 100 MG CAPSULE PO (09:42)
[2025-04-23] MEDS: MULTIVIT/MIN/PREN/FOL AC/IRON TABLET 1 TAB PO (09:43)
--- NOTE | 2025-04-23 10:21 | PM.OBPNVD ---
OB - PN: Subj Subjective Date/time seen: 04/23/25 10:21 Narrative: Pain OK. Tolerating diet. Would like to go home. OB - PN: Obj Data Labs 04/23/25 05:14 Labs: Laboratory Results - last 24 hr 04/23/25 05:14 WBC 14.8 H RBC 2.63 L Hgb 8.0 L Hct 23.9 L MCV 90.9 MCH 30.4 MCHC 33.5 RDW 13.0 Plt Count 155 MPV 11.8 H Immature Gran % (Auto) 0.7 H Neut % (Auto) 72.8 Lymph % (Auto) 18.5 [place] % (Auto) 7.1 Eos % (Auto) 0.6 Baso % (Auto) 0.3 Lymph # (Auto) 2.74 [place] # (Auto) 1.1 H Eos # (Auto) 0.1 Baso # (Auto) 0.1 Abs Immat Gran (auto) 0.10 H Absolute Neuts (auto) 10.8 H Absolute Nucleated RBC 0.000 Nucleated RBC % 0.0 OB - PN A/P Plan day: 1 Comments: A: POD#1, doing well. P: Home to f/u 4 weeks. Exam Narrative: AVSS ABD soft, nontender, fundus firm. Incision c/d/i. EXT nontender
[2025-04-23] MEDS: TETANUS,DIPHTHERIA,AC PERTUSSIS ADULT (0.5 ML) BOOSTRIX IM (13:42)
[2025-04-24 09:18] VITALS: BP 112/73; PULSE 95; RESP 18; TEMP 36.6; O2SAT 98
== END 2025-04-23 15:35 | disposition home or self-care (01) | DRG 788 ==
LOC: ANHLDR 04-22 02:14 → ANHOB2 04-22 06:56
PROVIDERS: Admitting Provider Obstetrics & Gynecology; PCP Family Medicine; Visit Provider Obstetrics & Gynecology
PROC: 10D00Z1 Extraction of Products of Conception, Low, Open Approach (ICD-10-PCS; CPT 59514; principal; 2025-04-22 12:00)
DX: O34.211 Maternal care for low transverse scar from previous cesarean delivery (principal); Z37.0 Single live birth; Z3A.39 39 weeks gestation of pregnancy
CPT/HCPCS: 36415; 84112; 85025; 90715; J0690; A9270; J0456; J1100; J1200; J1596; J1885; J2210; J2270; J2274; J2371; J2405; J2590; J2704; J2765; J7050; J7120